=== PATIENT | male | born 1930 | race Caucasian/White ===

== ENCOUNTER 2020-01-28 19:40 | Emergency (ER) | payer MEDICARE, OTHER ==
[~2020-01-28] VITALS: Ht 162 cm; Wt 79.0 kg
--- NOTE | 2020-01-28 20:01 | ED General ---
General Chief Complaint: General Problems/Pain Stated Complaint: OD OF AMP DEXTROSE Source of Information: Patient Exam Limitations: No Limitations History of Present Illness Date Seen by Provider: Jan 28, 2020 Time Seen by Provider: 19:50 Initial Comments Patient presents with concern of possibly taking too much of his regular prescr iption medication. His daughter normally lays out 1 week of his medication and the pill dispensing container and came to fill the container today which should've had 1 day left but the container was empty. Patient does not recall taking an extra day or taking any extra pills. Swollen actuality it could've been a day over the past 6 days that the pills were missing, however they called poison control and there was concern of him taking an extra glipizide today, although that cannot be confirmed. Patient is feeling fine, he ate dinner tonight and is without complaint. States that his sugars up and running "normal" and that he never goes low. Allergies and Home Medications Allergies Coded Allergies: No Known Drug Allergies (Unverified , 01/28/20) Patient Home Medication List Home Medication List Reviewed: Yes Review of Systems Review of Systems Constitutional: see HPI; No dizziness, No fever, No malaise, No weakness Respiratory: No cough, No short of breath Cardiovascular: No chest pain, No edema, No palpitations Gastrointestinal: No abdominal pain, No loss of appetite, No nausea, No vomiting Psychiatric/Neurological: Denies Headache, Denies Numbness, Denies Paresthesia Past Igaipqf-Ceazlx-Pdxkrp Hx Past Med/Social Hx: Reviewed Nursing Past Med/Soc Hx Patient Social History Alcohol Use: Denies Use Recreational Drug Use: No Smoking Status: Never a Smoker 2nd Hand Smoke Exposure: No Recent Foreign Travel: No Contact w/Someone Who Travel: No Recent Hopitalizations: No Past Medical History Surgeries: No Respiratory: No Cardiac: Yes High Cholesterol, Hypertension Neurological: No Genitourinary: No Gastrointestinal: No Musculoskeletal: No Endocrine: Yes Diabetes, Non-Insulin dep HEENT: No Cancer: No Psychosocial: No Integumentary: No Blood Disorders: No Physical Exam Vital Signs Vital Signs - First Documented 01/28/20 19:43 Temp 36.7 Pulse 75 Resp 16 B/P (MAP) 139/86 (103) Pulse Ox 98 O2 Delivery Room Air Capillary Refill : Height, Weight, BMI Height: '" Weight: lbs. oz. kg; BMI Method: General Appearance: No Apparent Distress, WD/WN HEENT: PERRL/EOMI, Normal ENT Inspection Respiratory: Lungs Clear, Normal Breath Sounds Cardiovascular: Regular Rate, Rhythm, No Edema Gastrointestinal: Non Tender, Soft Neurologic/Psychiatric: Alert, Oriented x3 Progress/Results/Core Measures Suspected Sepsis SIRS Temperature: Pulse: Respiratory Rate: Laboratory Tests 01/28/20 19:47: White Blood Count 10.9 Blood Pressure / Mean: Laboratory Tests 01/28/20 19:47: Creatinine 1.55H, Platelet Count 179, Total Bilirubin 0.4 Results/Orders Lab Results Laboratory Tests Test 01/28/20 19:47 01/28/20 19:48 Range/Units White Blood Count 10.9 4.3-11.0 10^3/uL Red Blood Count 4.35 4.35-5.85 10^6/uL Hemoglobin 12.5 L 13.3-17.7 G/DL Hematocrit 39 L 40-54 % Mean Corpuscular Volume 89 80-99 FL Mean Corpuscular Hemoglobin 29 25-34 PG Mean Corpuscular Hemoglobin Concent 32 32-36 G/DL Red Cell Distribution Width 14.9 H 10.0-14.5 % Platelet Count 179 130-400 10^3/uL Mean Platelet Volume 11.5 H 7.4-10.4 FL Neutrophils (%) (Auto) 69 42-75 % Lymphocytes (%) (Auto) 16 12-44 % Monocytes (%) (Auto) 10 0-12 % Eosinophils (%) (Auto) 4 0-10 % Basophils (%) (Auto) 1 0-10 % Neutrophils # (Auto) 7.5 1.8-7.8 X 10^3 Lymphocytes # (Auto) 1.7 1.0-4.0 X 10^3 Monocytes # (Auto) 1.1 H 0.0-1.0 X 10^3 Eosinophils # (Auto) 0.5 H 0.0-0.3 10^3/uL Basophils # (Auto) 0.1 0.0-0.1 10^3/uL Sodium Level 139 135-145 MMOL/L Potassium Level 4.4 3.6-5.0 MMOL/L Chloride Level 101 98-107 MMOL/L Carbon Dioxide Level 24 21-32 MMOL/L Anion Gap 14 5-14 MMOL/L Blood Urea Nitrogen 22 H 7-18 MG/DL Creatinine 1.55 H 0.60-1.30 MG/DL Estimat Glomerular Filtration Rate 43 BUN/Creatinine Ratio 14 Glucose Level 129 H 70-105 MG/DL Calcium Level 8.9 8.5-10.1 MG/DL Corrected Calcium 8.9 8.5-10.1 MG/DL Total Bilirubin 0.4 0.1-1.0 MG/DL Aspartate Amino Transf (AST/SGOT) 28 5-34 U/L Alanine Aminotransferase (ALT/SGPT) 18 0-55 U/L Alkaline Phosphatase 54 40-136 U/L Total Protein 6.8 6.4-8.2 GM/DL Albumin 4.0 3.2-4.5 GM/DL Glucometer 120 H 70-110 MG/DL My Orders Orders - DAYNE VALENTINE DO Comprehensive Metabolic Panel (01/28/20 19:57) Cbc With Automated Diff (01/28/20 19:57) Accucheck Stat ONCE (01/28/20 20:03) Vital Signs/I&O 01/28/20 01/28/20 19:43 20:23 Temp 36.7 36.7 Pulse 75 75 Resp 16 16 B/P (MAP) 139/86 (103) 139/86 (103) Pulse Ox 98 98 O2 Delivery Room Air Room Air Capillary Refill : Progress Note : Progress Note Patient unaware if he actually took extra dose of his medication, his daughter just noted that he was short one day of medication today prior to refilling his medication container for the week. However patient does regularly take his medication at 7 a.m. daily and today was no different. His had a normal day, eating 3 meals without any hypoglycemic episodes. The peak plasma concentration of glipizide would occur on average one to 3 hours after taking the medication which would've been by 10 a.m. today. Also half- life of glipizide is 2-4 hours. If patient had taken a dangerous dose of glipizide he would've had hypoglycemia by noon or shortly afterward. However patient has been without hypoglycemic symptoms all day with normal activity, behavior tenderness without complaint. This time do not think it necessary to watch him for several hours his poison control has advised. Suspect they do not have direct patient information (only suspicion) as I've gained here in the ER. Patient is safe to go home, he has ank 2 cups of apple juice and advised that ate some protein or high-quality fat prior to bedtime tonight. Departure Impression Primary Impression: Accidental medication overdose Qualified Codes: T50.901A - Poisoning by unspecified drugs, medicaments and biological substances, accidental (unintentional), initial encounter Disposition: HOME, SELF-CARE Condition: Stable Departure-Patient Inst. Decision time for Depature: 20:11 Referrals: NO,LOCAL PHYSICIAN (PCP/Family) Primary Care Physician Patient Instructions: Accidental Overdose (DC) Add. Discharge Instructions: Eat a serving of protein tonight, such as a peanut butter sandwich. Watch for symptoms of low blood sugar and keep some juice or cola nearby if you are feeling low. Follow up with your PCP as needed. Be careful not to take your daily pills more than once. All discharge instructions reviewed with patient and/or family. Voiced understanding. DAYNE VALENTINE DO Jan 28, 2020 20:01
[2020-01-28 20:04] LABS: WHITE BLOOD COUNT 10.9 10^3/uL (4.3-11.0)
[2020-01-28 20:05] LABS: BASOPHILS # (AUTO) 0.1 10^3/uL (0.0-0.1); BASOPHILS % (AUTO) 1 % (0-10); EOSINOPHILS # (AUTO) 0.5 10^3/uL (0.0-0.3); EOSINOPHILS % (AUTO) 4 % (0-10); HEMATOCRIT 39 % (40-54); HEMOGLOBIN 12.5 G/DL (13.3-17.7); LYMPHOCYTES # (AUTO) 1.7 X 10^3 (1.0-4.0); LYMPHOCYTES % (AUTO) 16 % (12-44); MEAN CORPUSCULAR HEMOGLOBIN 29 PG (25-34); MEAN CORPUSCULAR HGB CONC 32 G/DL (32-36); MEAN CORPUSCULAR VOLUME 89 FL (80-99); MEAN PLATELET VOLUME 11.5 FL (7.4-10.4); MONOCYTES # (AUTO) 1.1 X 10^3 (0.0-1.0); MONOCYTES % (AUTO) 10 % (0-12); NEUTROPHILS # (AUTO) 7.5 X 10^3 (1.8-7.8); NEUTROPHILS % (AUTO) 69 % (42-75); PLATELET COUNT 179 10^3/uL (130-400); RED CELL DISTRIBUTION WIDTH 14.9 % (10.0-14.5)
[2020-01-28 20:21] LABS: BILIRUBIN,TOTAL 0.4 MG/DL (0.1-1.0); CALCIUM 8.9 MG/DL (8.5-10.1); CREATININE SERUM 1.55 MG/DL (0.60-1.30); TOTAL PROTEIN 6.8 GM/DL (6.4-8.2)
[2020-01-28 20:22] LABS: POTASSIUM 4.4 MMOL/L (3.6-5.0)
[2020-01-28 20:23] VITALS: BP 139/86
--- OUTSIDE RECORDS SUMMARY | 2020-01-28 22:16 | XMS REPORT | Continuity of Care Document ---
Author Organization Unknown Address Unknown Phone Unavailable Allergies Active Description Code Type Severity Reaction Onset Reported/Identified Relationship to Patient Clinical Status Yes No Known Drug Allergies [id number] Drug Allergy Unknown N/A 01/28/2020 Medications There is no data. Problems There is no data. Procedures There is no data. Results Test Result Range Complete blood count (CBC) with automate d white blood cell (WBC) differential - 01/28/20 19:47 Blood leukocytes automated count (number/volume) 10.9 10*3/uL 4.3-11.0 Blood erythrocytes automated count (number/volume) 4.35 10*6/uL 4.35-5.85 Venous blood hemoglobin measurement (mass/volume) 12.5 g/dL 13.3-17.7 Blood hematocrit (volume fraction) 39 % 40-54 Automated erythrocyte mean corpuscular volume 89 [ foz_us] 80-99 Automated erythrocyte mean corpuscular h emoglobin (mass per erythrocyte) 29 pg 25-34 Automated erythrocyte mean corpuscular h emoglobin concentration measurement (mass/volume) 32 g/dL 32-36 Automated erythrocyte distribution width ratio 14. 9 % 10.0- 14.5 Automated blood platelet count (count/volume) 179 10*3/uL 130-400 Automated blood platelet mean volume measurement 11.5 [foz_us] 7.4-10.4 Automated blood neutrophils/100 leukocytes 69 % 42-75 Automated blood lymphocytes/100 leukocytes 16 % 12-44 Blood monocytes/100 leukocytes 10 % 0-12 Automated blood eosinophils/100 leukocytes 4 % 0-10 Automated blood basophils/100 leukocytes 1 % 0-10 Blood neutrophils automated count (number/volume) 7.5 10*3 1.8-7.8 Blood lymphocytes automated count (number/volume) 1.7 10*3 1.0-4.0 Blood monocytes automated count (number/volume) 1. 1 10*3 0.0-1.0 Automated eosinophil count 0.5 10*3/uL 0 .0-0.3 Automated blood basophil count (count/volume) 0.1 10*3/uL 0.0-0.1 Comprehensive metabolic panel - 01/28/20 19:47 Serum or plasma sodium measurement (moles/volume) 139 mmol/L 135-145 Serum or plasma potassium measurement (moles/volume) 4.4 mmol/L 3.6-5.0 Serum or plasma chloride measurement (moles/volume) 101 mmol/L 98-107 Carbon dioxide 24 mmol/L 21-32 Serum or plasma anion gap determination (moles/volume) 14 mmol/L 5-14 Serum or plasma urea nitrogen measurement (mass/volume ) 22 mg/dL 7-18 Serum or plasma creatinine measurement (mass/volume) 1.55 mg/dL 0.60-1.30 Serum or plasma urea nitrogen/creatinine mass ratio 14 NRG Serum or plasma creatinine measurement w ith calculation of estimated glomerular filtration rate 43 NRG Serum or plasma glucose measurement (mass/volume) 129 mg/dL 70-105 Serum or plasma calcium measurement (mass/volume) 8.9 mg/dL 8.5-10.1 Serum or plasma total bilirubin measurement (mass/volu me) 0.4 mg/dL 0.1-1.0 Serum or plasma alkaline phosphatase petar surement (enzymatic activity/volume) 54 U/L 40-136 Serum or plasma aspartate aminotransfera se measurement (enzymatic activity/volume) 28 U/L 5-34 Serum or plasma alanine aminotransferase measurement (enzymatic activity/volume) 18 U/L 0-55 Serum or plasma protein measurement (mass/volume) 6.8 g/dL 6.4-8.2 Serum or plasma albumin measurement (mass/volume) 4.0 g/dL 3.2-4.5 CALCIUM CORRECTED 8.9 mg/dL 8.5-10.1 Capillary blood glucose measurement by g lucometer (mass/volume) - 01/28/20 19:48 Capillary blood glucose measurement by glucometer (mas s/volume) 120 mg/dL 70-110 Encounters ACCT No. Visit Date/Time Discharge Status Pt. Type Provider Facility Loc./Unit Complaint [id number] 01/28/2020 19:43:00 020 20:27:00 DIS Emergency ALLYVENDAYNE HORTON DO [facility] ER FS POSS OD OF AMP DEXTROSE [id number] 01/22/2020 15:30:00 01/22/2020 23:59: 59 CLS Outpatient Juan Manuel Rocha [facility]
== END 2020-01-28 20:27 | disposition home or self-care (01) ==
LOC: ER FS 19:43
DX: T50.901A Poisoning by unspecified drugs, medicaments and biological substances, accidental (unintentional), initial encounter (principal); E11.9 Type 2 diabetes mellitus without complications
CPT/HCPCS: 36415; 80053; 82962; 85025

== ENCOUNTER → 2020-03-30 | Outpatient (CLI) | payer MEDICARE, OTHER ==
[2020-03-30 09:40] LABS: HEMOGLOBIN 12.5 G/DL (13.3-17.7); WHITE BLOOD COUNT 8.6 10^3/uL (4.3-11.0)
[2020-03-30 09:41] LABS: MEAN PLATELET VOLUME 11.8 FL (7.4-10.4)
[2020-03-30 09:42] LABS: ALBUMIN 3.8 GM/DL (3.2-4.5); BILIRUBIN,DIRECT 0.2 MG/DL (0.0-0.3); BILIRUBIN,INDIRECT 0.3 MG/DL; BILIRUBIN,TOTAL 0.5 MG/DL (0.1-1.0); CALCIUM 9.3 MG/DL (8.5-10.1); CREATININE SERUM 1.45 MG/DL (0.60-1.30); POTASSIUM 4.1 MMOL/L (3.6-5.0); TOTAL PROTEIN 6.7 GM/DL (6.4-8.2)
== END ==
LOC: LAB FS 07:17
DX: E11.9 Type 2 diabetes mellitus without complications (principal); I25.10 Atherosclerotic heart disease of native coronary artery without angina pectoris; I48.91 Unspecified atrial fibrillation; I10 Essential (primary) hypertension
CPT/HCPCS: 36415; 80053; 80061; 80076; 83036; 85027

== ENCOUNTER → 2020-05-12 | Outpatient (CLI) | payer MEDICARE, OTHER ==
[2020-05-12 16:24] LABS: INR 2.1 (0.8-1.4)
== END ==
LOC: LAB FS 15:58
PROVIDERS: ATTEND Internal Medicine Critical Care Medicine
DX: Z79.01 Long term (current) use of anticoagulants (principal); I48.20 Chronic atrial fibrillation, unspecified
CPT/HCPCS: 36415; 85610

== ENCOUNTER → 2020-05-18 | Outpatient (CLI) | payer MEDICARE, OTHER ==
[2020-05-18 11:06] LABS: INR 1.9 (0.8-1.4); PROTHROMBIN TIME PATIENT 22.2 SEC (12.2-14.7)
== END ==
LOC: LAB FS 10:12
PROVIDERS: ATTEND Internal Medicine Critical Care Medicine
DX: Z51.81 Encounter for therapeutic drug level monitoring (principal); Z95.5 Presence of coronary angioplasty implant and graft; Z79.01 Long term (current) use of anticoagulants
CPT/HCPCS: 36415; 85610

== ENCOUNTER → 2020-05-22 | Outpatient (CLI) | payer MEDICARE, OTHER ==
[2020-05-22 17:16] LABS: INR 1.9 (0.8-1.4); PROTHROMBIN TIME PATIENT 22.4 SEC (12.2-14.7)
== END ==
LOC: LAB FS 16:07
PROVIDERS: ATTEND Internal Medicine Hematology & Oncology
DX: J44.9 Chronic obstructive pulmonary disease, unspecified (principal); Z95.5 Presence of coronary angioplasty implant and graft
CPT/HCPCS: 36415; 85610

== ENCOUNTER → 2020-05-29 | Outpatient (CLI) | payer MEDICARE, OTHER ==
[2020-05-29 17:46] LABS: INR 1.8 (0.8-1.4); PROTHROMBIN TIME PATIENT 21.4 SEC (12.2-14.7)
== END ==
LOC: LAB FS 17:04
DX: I48.20 Chronic atrial fibrillation, unspecified (principal); Z79.01 Long term (current) use of anticoagulants
CPT/HCPCS: 36415; 85610

== ENCOUNTER → 2020-06-05 | Outpatient (CLI) | payer MEDICARE, OTHER | LOC: LAB FS 15:25 | PROVIDERS: ATTEND Nurse Practitioner | DX: Z79.82 Long term (current) use of aspirin (principal); Z79.01 Long term (current) use of anticoagulants ==

== ENCOUNTER → 2020-06-07 | Outpatient (CLI) | payer MEDICARE, OTHER ==
[2020-06-07 15:47] LABS: INR 2.7 (0.8-1.4); PROTHROMBIN TIME PATIENT 28.5 SEC (12.2-14.7)
== END ==
LOC: LAB FS 14:46
PROVIDERS: ATTEND Internal Medicine Critical Care Medicine
DX: Z01.89 Encounter for other specified special examinations (principal); Z79.01 Long term (current) use of anticoagulants
CPT/HCPCS: 36415; 85610

== ENCOUNTER → 2020-06-12 | Outpatient (CLI) | payer MEDICARE, OTHER ==
[2020-06-12 15:42] LABS: PROTHROMBIN TIME PATIENT 27.6 SEC (12.2-14.7)
[2020-06-12 15:43] LABS: INR 2.6 (0.8-1.4)
== END ==
LOC: LAB FS 15:08
PROVIDERS: ATTEND Internal Medicine Hematology & Oncology
DX: I13.0 Hypertensive heart and chronic kidney disease with heart failure and stage 1 through stage 4 chronic kidney disease, or unspecified chronic kidney disease (principal); Z79.01 Long term (current) use of anticoagulants
CPT/HCPCS: 36415; 85610; 85730

== ENCOUNTER → 2020-06-19 | Outpatient (CLI) | payer MEDICARE, OTHER ==
[2020-06-19 10:23] LABS: INR 1.5 (0.8-1.4); PROTHROMBIN TIME PATIENT 17.9 SEC (12.2-14.7)
== END ==
LOC: LAB FS 09:38
PROVIDERS: ATTEND Family Medicine
DX: I48.20 Chronic atrial fibrillation, unspecified (principal); Z79.01 Long term (current) use of anticoagulants
CPT/HCPCS: 36415; 85610

== ENCOUNTER → 2020-07-05 | Outpatient (CLI) | payer MEDICARE, OTHER ==
[2020-07-05 10:22] LABS: INR 1.2 (0.8-1.4); PROTHROMBIN TIME PATIENT 15.3 SEC (12.2-14.7)
== END ==
LOC: LAB FS 09:47
PROVIDERS: ATTEND Internal Medicine Critical Care Medicine
DX: I48.20 Chronic atrial fibrillation, unspecified (principal); Z79.01 Long term (current) use of anticoagulants
CPT/HCPCS: 36415; 85610

== ENCOUNTER → 2020-07-12 | Outpatient (CLI) | payer MEDICARE, OTHER ==
[2020-07-12 11:07] LABS: INR 1.6 (0.8-1.4); PROTHROMBIN TIME PATIENT 18.9 SEC (12.2-14.7)
== END ==
LOC: LAB FS 10:38
PROVIDERS: ATTEND Family Medicine
DX: Z01.89 Encounter for other specified special examinations (principal); Z79.01 Long term (current) use of anticoagulants
CPT/HCPCS: 36415; 85610

== ENCOUNTER → 2020-07-19 | Outpatient (CLI) | payer MEDICARE, OTHER ==
[2020-07-19 11:13] LABS: INR 1.8 (0.8-1.4); PROTHROMBIN TIME PATIENT 21.1 SEC (12.2-14.7)
== END ==
LOC: LAB FS 10:41
PROVIDERS: ATTEND Family Medicine
DX: I48.20 Chronic atrial fibrillation, unspecified (principal)
CPT/HCPCS: 36415; 85610

== ENCOUNTER → 2020-08-02 | Outpatient (CLI) | payer MEDICARE, OTHER ==
[2020-08-02 13:36] LABS: INR 2.3 (0.8-1.4); PROTHROMBIN TIME PATIENT 25.8 SEC (12.2-14.7)
== END ==
LOC: IHC 12:51
PROVIDERS: ATTEND Family Medicine
DX: I48.20 Chronic atrial fibrillation, unspecified (principal); Z79.01 Long term (current) use of anticoagulants
CPT/HCPCS: 85610

== ENCOUNTER → 2020-08-09 | Outpatient (CLI) | payer MEDICARE, OTHER ==
[2020-08-09 12:32] LABS: INR 1.9 (0.8-1.4)
== END ==
LOC: LAB FS 11:47
PROVIDERS: ATTEND Family Medicine
DX: Z79.01 Long term (current) use of anticoagulants (principal)
CPT/HCPCS: 36415; 85610

== ENCOUNTER → 2020-09-21 | Outpatient (CLI) | payer MEDICARE, OTHER ==
[2020-09-21 15:24] LABS: INR 3.1 (0.8-1.4); PROTHROMBIN TIME PATIENT 31.8 SEC (12.2-14.7)
== END ==
LOC: IHC 15:00
PROVIDERS: ATTEND Family Medicine
DX: Z79.01 Long term (current) use of anticoagulants (principal)
CPT/HCPCS: 85610

== ENCOUNTER → 2020-09-25 | Outpatient (CLI) | payer MEDICARE, OTHER ==
[2020-09-25 14:45] LABS: PROTHROMBIN TIME PATIENT 39.1 SEC (12.2-14.7)
== END ==
LOC: LAB FS 14:07
PROVIDERS: ATTEND Family Medicine
DX: I48.0 Paroxysmal atrial fibrillation (principal)
CPT/HCPCS: 36415; 85610

== ENCOUNTER → 2020-10-12 | Outpatient (CLI) | payer MEDICARE, OTHER ==
[2020-10-12 10:49] LABS: INR 1.7 (0.8-1.4); PROTHROMBIN TIME PATIENT 20.5 SEC (12.2-14.7)
== END ==
LOC: IHC 09:57
PROVIDERS: ATTEND Family Medicine
DX: Z79.01 Long term (current) use of anticoagulants (principal)
CPT/HCPCS: 85610

== ENCOUNTER → 2020-10-18 | Outpatient (CLI) | payer MEDICARE, OTHER ==
[2020-10-18 10:12] LABS: INR 1.7 (0.8-1.4); PROTHROMBIN TIME PATIENT 19.9 SEC (12.2-14.7)
== END ==
LOC: IHC 09:04
PROVIDERS: ATTEND Family Medicine
DX: Z01.89 Encounter for other specified special examinations (principal); Z79.01 Long term (current) use of anticoagulants
CPT/HCPCS: 85610

== ENCOUNTER → 2020-10-25 | Outpatient (CLI) | payer MEDICARE, OTHER ==
[2020-10-25 10:14] LABS: PROTHROMBIN TIME PATIENT 20.6 SEC (12.2-14.7)
[2020-10-25 10:15] LABS: INR 1.7 (0.8-1.4)
== END ==
LOC: LAB FS 09:38
PROVIDERS: ATTEND Family Medicine
DX: Z79.01 Long term (current) use of anticoagulants (principal)
CPT/HCPCS: 85610

== ENCOUNTER → 2020-11-10 | Outpatient (CLI) | payer MEDICARE, OTHER ==
[2020-11-10 09:55] LABS: INR 3.6 (0.8-1.4); PROTHROMBIN TIME PATIENT 35.9 SEC (12.2-14.7)
== END ==
LOC: IHC 09:26
PROVIDERS: ATTEND Family Medicine
DX: Z79.01 Long term (current) use of anticoagulants (principal)
CPT/HCPCS: 85610

== ENCOUNTER → 2020-11-15 | Outpatient (CLI) | payer MEDICARE, OTHER ==
[2020-11-15 10:32] LABS: INR 2.4 (0.8-1.4); PROTHROMBIN TIME PATIENT 26.2 SEC (12.2-14.7)
== END ==
LOC: IHC 09:57
PROVIDERS: ATTEND Family Medicine
DX: Z79.01 Long term (current) use of anticoagulants (principal)
CPT/HCPCS: 85610

== ENCOUNTER → 2020-11-29 | Outpatient (CLI) | payer MEDICARE, OTHER ==
[2020-11-29 18:03] LABS: INR 1.7 (0.8-1.4); PROTHROMBIN TIME PATIENT 20.4 SEC (12.2-14.7)
== END ==
LOC: IHC 16:55
PROVIDERS: ATTEND Family Medicine
DX: Z51.81 Encounter for therapeutic drug level monitoring (principal); Z79.01 Long term (current) use of anticoagulants
CPT/HCPCS: 85610

== ENCOUNTER → 2020-12-06 | Outpatient (CLI) | payer MEDICARE, OTHER ==
[2020-12-06 13:10] LABS: INR 2.9 (0.8-1.4); PROTHROMBIN TIME PATIENT 30.2 SEC (12.2-14.7)
== END ==
LOC: IHC 12:25
PROVIDERS: ATTEND Family Medicine
DX: Z79.01 Long term (current) use of anticoagulants (principal)
CPT/HCPCS: 85610

== ENCOUNTER → 2020-12-30 | Outpatient (CLI) | payer MEDICARE, OTHER ==
[2020-12-30 16:25] LABS: INR 2.3 (0.8-1.4); PROTHROMBIN TIME PATIENT 25.1 SEC (12.2-14.7)
== END ==
LOC: IHC 15:59
PROVIDERS: ATTEND Family Medicine
DX: I48.0 Paroxysmal atrial fibrillation (principal); I25.2 Old myocardial infarction; Z79.01 Long term (current) use of anticoagulants
CPT/HCPCS: 85610

== ENCOUNTER → 2021-01-03 | Outpatient (CLI) | payer MEDICARE ==
[2021-01-03 11:17] LABS: INR 2.2 (0.8-1.4); PROTHROMBIN TIME PATIENT 24.8 SEC (12.2-14.7)
== END ==
LOC: IHC 10:49
PROVIDERS: ATTEND Family Medicine
DX: Z79.01 Long term (current) use of anticoagulants (principal)
CPT/HCPCS: 85610

== ENCOUNTER → 2021-01-10 | Outpatient (CLI) | payer MEDICARE ==
[2021-01-10 12:43] LABS: INR 2.2 (0.8-1.4); PROTHROMBIN TIME PATIENT 24.9 SEC (12.2-14.7)
== END ==
LOC: HH 12:18
PROVIDERS: ATTEND Family Medicine
DX: I48.0 Paroxysmal atrial fibrillation (principal)
CPT/HCPCS: 85610

== ENCOUNTER → 2021-01-17 | Outpatient (CLI) | payer MEDICARE ==
[2021-01-17 15:47] LABS: INR 2.6 (0.8-1.4); PROTHROMBIN TIME PATIENT 28.1 SEC (12.2-14.7)
== END ==
LOC: IHC 14:24
PROVIDERS: ATTEND Family Medicine
DX: Z79.01 Long term (current) use of anticoagulants (principal)
CPT/HCPCS: 85610

== ENCOUNTER → 2021-01-31 | Outpatient (CLI) | payer MEDICARE ==
[2021-01-31 13:07] LABS: INR 2.2 (0.8-1.4); PROTHROMBIN TIME PATIENT 24.8 SEC (12.2-14.7)
== END ==
LOC: IHC 12:17
PROVIDERS: ATTEND Family Medicine
DX: Z79.01 Long term (current) use of anticoagulants (principal)
CPT/HCPCS: 85610

== ENCOUNTER → 2021-02-08 | Outpatient (CLI) | payer MEDICARE ==
[2021-02-08 15:05] LABS: INR 3.1 (0.8-1.4); PROTHROMBIN TIME PATIENT 31.7 SEC (12.2-14.7)
== END ==
LOC: LAB FS 14:28
PROVIDERS: ATTEND Family Medicine
DX: Z79.01 Long term (current) use of anticoagulants (principal)
CPT/HCPCS: 36415; 85610

== ENCOUNTER → 2021-02-14 | Outpatient (CLI) | payer MEDICARE ==
[2021-02-14 13:39] LABS: INR 1.9 (0.8-1.4); PROTHROMBIN TIME PATIENT 22.1 SEC (12.2-14.7)
== END ==
LOC: IHC 13:02
PROVIDERS: ATTEND Family Medicine
DX: Z79.01 Long term (current) use of anticoagulants (principal)
CPT/HCPCS: 85610

== ENCOUNTER → 2021-02-21 | Outpatient (CLI) | payer MEDICARE ==
[2021-02-21 11:54] LABS: INR 1.9 (0.8-1.4)
== END ==
LOC: IHC 11:14
PROVIDERS: ATTEND Family Medicine
DX: Z51.81 Encounter for therapeutic drug level monitoring (principal); Z79.01 Long term (current) use of anticoagulants
CPT/HCPCS: 85610

== ENCOUNTER → 2021-03-07 | Outpatient (CLI) | payer MEDICARE ==
[2021-03-07 13:40] LABS: INR 2.3 (0.8-1.4); PROTHROMBIN TIME PATIENT 25.7 SEC (12.2-14.7)
== END ==
LOC: LAB FS 11:37
PROVIDERS: ATTEND Family Medicine
DX: Z51.81 Encounter for therapeutic drug level monitoring (principal); Z79.01 Long term (current) use of anticoagulants
CPT/HCPCS: 36415; 85610

== ENCOUNTER → 2021-03-13 | Outpatient (CLI) | payer MEDICARE ==
[2021-03-13 12:39] LABS: INR 2.1 (0.8-1.4); PROTHROMBIN TIME PATIENT 23.8 SEC (12.2-14.7)
== END ==
LOC: IHC 11:43
PROVIDERS: ATTEND Family Medicine
DX: Z79.01 Long term (current) use of anticoagulants (principal)
CPT/HCPCS: 85610

== ENCOUNTER → 2021-03-22 | Outpatient (CLI) | payer MEDICARE ==
[2021-03-22 10:03] LABS: INR 2.2 (0.8-1.4); PROTHROMBIN TIME PATIENT 24.5 SEC (12.2-14.7)
== END ==
LOC: IHC 09:10
PROVIDERS: ATTEND Family Medicine
DX: Z51.81 Encounter for therapeutic drug level monitoring (principal); Z79.01 Long term (current) use of anticoagulants
CPT/HCPCS: 85610

== ENCOUNTER → 2021-03-28 | Outpatient (CLI) | payer MEDICARE ==
[2021-03-28 12:50] LABS: INR 2.4 (0.8-1.4); PROTHROMBIN TIME PATIENT 26.1 SEC (12.2-14.7)
== END ==
LOC: IHC 11:43
PROVIDERS: ATTEND Family Medicine
DX: Z51.81 Encounter for therapeutic drug level monitoring (principal); Z79.01 Long term (current) use of anticoagulants; Z79.82 Long term (current) use of aspirin
CPT/HCPCS: 85610

== ENCOUNTER → 2021-04-02 | Outpatient (CLI) | payer MEDICARE ==
[2021-04-02 11:05] LABS: INR 2.7 (0.8-1.4); PROTHROMBIN TIME PATIENT 28.7 SEC (12.2-14.7)
== END ==
LOC: IHC 10:10
PROVIDERS: ATTEND Family Medicine
DX: Z51.81 Encounter for therapeutic drug level monitoring (principal); Z79.01 Long term (current) use of anticoagulants
CPT/HCPCS: 85610

== ENCOUNTER 2021-09-30 12:07 | Emergency (ER) | payer MEDICARE ==
[2021-09-30 12:34] LABS: BASOPHILS # (AUTO) 0.1 10^3/uL (0.0-0.1); BASOPHILS % (AUTO) 1 % (0-10); EOSINOPHILS # (AUTO) 0.1 10^3/uL (0.0-0.3); EOSINOPHILS % (AUTO) 2 % (0-10); HEMATOCRIT 30 % (40-54); HEMOGLOBIN 9.1 g/dL (13.3-17.7); LYMPHOCYTES # (AUTO) 1.4 10^3/uL (1.0-4.0); LYMPHOCYTES % (AUTO) 15 % (12-44); MEAN CORPUSCULAR HEMOGLOBIN 28 pg (25-34); MEAN CORPUSCULAR HGB CONC 31 g/dL (32-36); MEAN CORPUSCULAR VOLUME 90 fL (80-99); MONOCYTES # (AUTO) 1.1 10^3/uL (0.0-1.0); MONOCYTES % (AUTO) 12 % (0-12); NEUTROPHILS # (AUTO) 6.7 10^3/uL (1.8-7.8); NEUTROPHILS % (AUTO) 71 % (42-75); PLATELET COUNT 179 10^3/uL (130-400); WHITE BLOOD COUNT 9.5 10^3/uL (4.3-11.0)
--- NOTE | 2021-09-30 12:43 | Diagnostic Imaging Report ---
INDICATION: Shortness of air, cough. TECHNIQUE: Single view chest 12:32 PM. CORRELATION STUDY: None FINDINGS: Left-sided AICD. Heart size enlarged, mild vascular congestion. Small to moderate bilateral pleural effusions along with a atelectasis infiltrate and/or edema about both lung bases. Likely superimposed on chronic changes lung parenchyma. Severely advanced degenerative changes of the left shoulder. IMPRESSION: 1. Cardiac enlargement with mild vascular congestion. 2. Small to moderate the bilateral pleural effusion along with bibasilar areas of atelectasis, infiltrate and/or edema. Likely superimposed on chronic changes lung parenchyma. Dictated by: Dictated on workstation # [id number]
[2021-09-30 12:44] LABS: INR 1.7 (0.8-1.4); PROTHROMBIN TIME PATIENT 20.3 SEC (12.2-14.7)
[2021-09-30 12:56] LABS: ALANINE AMINOTRANSFERASE 7 U/L (0-55); ALBUMIN 3.2 GM/DL (3.2-4.5); ALKALINE PHOSPHATASE 122 U/L (40-136); BILIRUBIN,TOTAL 0.3 MG/DL (0.1-1.0); BUN/CREATININE RATIO 18; CALCIUM 9.2 MG/DL (8.5-10.1); CARBON DIOXIDE 27 MMOL/L (21-32); CHLORIDE 104 MMOL/L (98-107); CREATININE SERUM 1.53 MG/DL (0.60-1.30); GFR ESTIMATED 43; GLUCOSE 191 MG/DL (70-105); POTASSIUM 5.1 MMOL/L (3.6-5.0); SODIUM 139 MMOL/L (135-145); TOTAL PROTEIN 6.4 GM/DL (6.4-8.2)
--- NOTE | 2021-09-30 13:10 | ED Respiratory ---
General Chief Complaint: Cough/Cold/Flu Symptoms Stated Complaint: COUGH Source: patient Exam Limitations: no limitations History of Present Illness Date Seen by Provider: Sep 30, 2021 Time Seen by Provider: 11:00 Initial Comments Patient is an 89-year-old [facility] patient with history of hypertension, congestive heart failure who is currently anticoagulated on Coumadin who presents with productive cough with thick sputum for 2 days. He has had recent hospitalization for pneumonia. Last evening he was reported to have an unwitnessed fall at local [place] [facility] facility. The patient did not complain of injury and completed assessable round of neuro checks. He does not recall the cause of the fall. The patient is baseline supplemental oxygen. He denies shortness of breath, fevers chills, vomiting sweats. No chest pain chest tigh tness. Does report leg swelling with 3 pound weight gain overnight. Patient is not currently on a diuretic. He has no other injuries or complaints at this time. Timing/Duration: yesterday Severity: mild Prior Episodes/Possible Cause: other Modifying Factors: Improves With Other Associated Symptoms: other Allergies and Home Medications Allergies Coded Allergies: No Known Drug Allergies (Unverified , 01/28/20) Patient Home Medication List Home Medication List Reviewed: Yes Review of Systems Review of Systems Constitutional: see HPI EENTM: see HPI Respiratory: see HPI Cardiovascular: see HPI Gastrointestinal: see HPI Musculoskeletal: see HPI Skin: see HPI Psychiatric/Neurological: See HPI Hematologic/Lymphatic: See HPI Immunological/Allergic: see HPI All Other Systems Reviewed Negative Unless Noted: Yes Past Fptlvjn-Aajqpg-Rnhdyu Hx Patient Social History Tobacco Use?: No Smoking Status: Unknown if Ever Smoked Substance use?: No Alcohol Use?: No Pt feels they are or have been: No Immunizations Up To Date First/Initial COVID19 Vaccinat: yes Second COVID19 Vaccination Jim: yes Past Medical History Surgery/Hospitalization HX: CHF; Atheroscleroic heart disease; chornic pain syndrome; dystonia; hypothyroidism; pneumonia; atrial fibrillation; frequent falls; COPD; Dysphagia; HTN; Type 2 DM; Diatolic heart failure. Surgeries: No Respiratory: No Cardiac: Yes High Cholesterol, Hypertension Neurological: No Genitourinary: No Gastrointestinal: No Musculoskeletal: No Endocrine: Yes Diabetes, Non-Insulin dep HEENT: No Cancer: No Psychosocial: No Integumentary: No Blood Disorders: No Physical Exam Vital Signs - First Documented 09/30/21 12:15 Temp 35.9 Pulse 62 Resp 20 B/P (MAP) 89/51 (64) Pulse Ox 100 O2 Delivery Nasal Cannula O2 Flow Rate 3.00 Capillary Refill : Height: '" Weight: lbs. oz. kg; 30.00 BMI Method: General Appearance: WD/WN, no apparent distress Eyes: Bilateral Eye Normal Inspection, Bilateral Eye PERRL, Bilateral Eye EOMI HEENT: PERRL/EOMI, TMs normal, pharynx normal Neck: non-tender, full range of motion, supple Respiratory: lungs clear, decreased breath sounds Cardiovascular: normal peripheral pulses, regular rate, rhythm, other (Peripheral edema) Gastrointestinal: non tender, soft Neurologic/Psychiatric: avionics systems technician II-XII nml as tested, alert Focused Exam Lactate Level 09/30/21 12:30: Lactic Acid Level 1.70 Lactic Acid Level Laboratory Tests Test 09/30/21 12:30 Lactic Acid Level 1.70 MMOL/L (0.50-2.00) Progress/Results/Core Measures Suspected Sepsis SIRS Temperature: Pulse: Respiratory Rate: Laboratory Tests 09/30/21 12:30: White Blood Count 9.5 Blood Pressure / Mean: 09/30/21 12:30: Lactic Acid Level 1.70 Laboratory Tests 09/30/21 12:30: Creatinine 1.53H, INR Comment 1.7H, Platelet Count 179, Total Bilirubin 0.3 Results/Orders Lab Results Laboratory Tests Test 09/30/21 12:30 Range/Units White Blood Count 9.5 4.3-11.0 10^3/uL Red Blood Count 3.28 L 4.30-5.52 10^6/uL Hemoglobin 9.1 L 13.3-17.7 g/dL Hematocrit 30 L 40-54 % Mean Corpuscular Volume 90 80-99 fL Mean Corpuscular Hemoglobin 28 25-34 pg Mean Corpuscular Hemoglobin Concent 31 L 32-36 g/dL Red Cell Distribution Width 16.5 H 10.0-14.5 % Platelet Count 179 130-400 10^3/uL Mean Platelet Volume 12.0 9.0-12.2 fL Immature Granulocyte % (Auto) 1 % Neutrophils (%) (Auto) 71 42-75 % Lymphocytes (%) (Auto) 15 12-44 % Monocytes (%) (Auto) 12 0-12 % Eosinophils (%) (Auto) 2 0-10 % Basophils (%) (Auto) 1 0-10 % Neutrophils # (Auto) 6.7 1.8-7.8 10^3/uL Lymphocytes # (Auto) 1.4 1.0-4.0 10^3/uL Monocytes # (Auto) 1.1 H 0.0-1.0 10^3/uL Eosinophils # (Auto) 0.1 0.0-0.3 10^3/uL Basophils # (Auto) 0.1 0.0-0.1 10^3/uL Immature Granulocyte # (Auto) 0.1 0.0-0.1 10^3/uL Prothrombin Time 20.3 H 12.2-14.7 SEC INR Comment 1.7 H 0.8-1.4 Sodium Level 139 135-145 MMOL/L Potassium Level 5.1 H 3.6-5.0 MMOL/L Chloride Level 104 98-107 MMOL/L Carbon Dioxide Level 27 21-32 MMOL/L Anion Gap 8 5-14 MMOL/L Blood Urea Nitrogen 27 H 7-18 MG/DL Creatinine 1.53 H 0.60-1.30 MG/DL Estimat Glomerular Filtration Rate 43 BUN/Creatinine Ratio 18 Glucose Level 191 H 70-105 MG/DL Lactic Acid Level 1.70 0.50-2.00 MMOL/L Calcium Level 9.2 8.5-10.1 MG/DL Corrected Calcium 9.8 8.5-10.1 MG/DL Total Bilirubin 0.3 0.1-1.0 MG/DL Aspartate Amino Transf (AST/SGOT) 11 5-34 U/L Alanine Aminotransferase (ALT/SGPT) 7 0-55 U/L Alkaline Phosphatase 122 40-136 U/L Troponin I < 0.30 <0.30 NG/ML Pro-B-Type Natriuretic Peptide 88183.0 H <75.0 PG/ML Total Protein 6.4 6.4-8.2 GM/DL Albumin 3.2 3.2-4.5 GM/DL My Orders Orders - ISAAC KEYES DO Cbc With Automated Diff (09/30/21 12:21) Comprehensive Metabolic Panel (09/30/21 12:21) Chest 1 View Ap/Pa Only (09/30/21 12:21) Protime With Inr (09/30/21 12:21) Ekg Tracing (09/30/21 12:21) Troponin I Fs (09/30/21 12:21) Probnp Fs (09/30/21 12:21) Lactic Acid Analyzer (09/30/21 12:30) Furosemide Injection (Lasix Injection) (09/30/21 13:15) Doxycycline Hyclate Tablet (Vibramycin T (09/30/21 13:15) Furosemide Injection (Lasix Injection) (09/30/21 14:30) Medications Given in ED Current Medications Medications Dose Ordered Sig/Michelle Route Start Time Stop Time Status Last Admin Dose Admin Furosemide 40 mg ONCE ONCE IVP 09/30/21 13:15 09/30/21 13:16 DC 09/30/21 13:20 40 MG Furosemide 40 mg ONCE ONCE IVP 09/30/21 14:30 09/30/21 14:31 DC 09/30/21 14:27 40 MG Vital Signs/I&O 09/30/21 12:15 Temp 35.9 Pulse 62 Resp 20 B/P (MAP) 89/51 (64) Pulse Ox 100 O2 Delivery Nasal Cannula O2 Flow Rate 3.00 Capillary Refill : Departure Communication (PCP) Chest x-ray: Mild cardiomegaly with pulmonary vascular congestion, pleural effusions and possible pulmonary infiltrate Patient with CHF symptoms pulmonary vascular congestion/effusions on x-ray. No respiratory compromise. Productive cough with thick discolored sputum. Patient is afebrile normal white blood cell count negative lactic acid. ICV Lasix given with significant diuresis. Doxycycline given. Will discharge to [place] [facility] with instructions to follow-up with PCP in 1 to 2 days. Return precautions reviewed per Impression Primary Impression: CHF exacerbation Additional Impression: Pulmonary infiltrates on CXR Disposition: 01 HOME, SELF-CARE Condition: Stable Departure-Patient Inst. Referrals: SHAKILA MULLEN DO (PCP/Family) Primary Care Physician Patient Instructions: Heart Failure ED, Pneumonia in Adults Add. Discharge Instructions: Franklin was evaluated the emergency department for cough. Chest x-ray and labs are consistent with congestive heart failure and possible pneumonia. Please give newly prescribed medications as directed and follow-up with his [place] [facility] attending her PCP in 1 to 2 days for reevaluation without fail. Return to the ED if new or worsening symptoms. All discharge instructions reviewed with patient and/or family. Voiced understanding. Scripts Furosemide (Lasix) 40 Mg Tablet 40 MG PO BID, #6 TAB Prov: ISAAC KEYES DO 09/30/21 Doxycycline Hyclate (Doxycycline Hyclate) 100 Mg Tablet 100 MG PO BID, #20 TAB 0 Refills Prov: ISAAC KEYES DO 09/30/21 ISAAC KEYES DO Sep 30, 2021 13:10
[2021-09-30] MEDS ORDERED: FUROSEMIDE 40 MG/4 ML INJ (LASIX) IVP ONE ×2 (13:15→14:30)
[2021-09-30] MEDS ORDERED: DOXYCYCLINE 100 MG (VIBRAMYCIN) TABLET PO SCH (13:15)
[2021-09-30] MEDS ORDERED: FURO-124 PO (15:44)
[2021-09-30] MEDS ORDERED: DOXY100T2 PO (15:44)
[2021-09-30 15:55] VITALS: BP 107/62
== END 2021-09-30 15:57 | disposition home or self-care (01) ==
LOC: EDUNIT# 12:07 → ER FS 12:09
DX: I50.9 Heart failure, unspecified (principal); R91.8 Other nonspecific abnormal finding of lung field
CPT/HCPCS: 36415; 71045; 80053; 83605; 83880; 84484; 85025; 85610; 93005

== ENCOUNTER 2021-10-10 23:44 | Inpatient (IN) | payer MEDICARE ==
[~2021-10-10] VITALS: Ht 175 cm; Wt 71.4 kg
[~2021-10-10 23:44] MED LIST: DOXY100T2 PO; FURO-124 PO
[2021-10-11] VITALS (12 sets, daily range): BP systolic 91–146; BP diastolic 51–93
--- NOTE | 2021-10-11 00:05 | ED Chest Pain ---
General Stated Complaint: CHEST PAIN History of Present Illness Date Seen by Provider: Oct 11, 2021 Time Seen by Provider: 23:48 Initial Comments 89-year-old male with PMH of pacemaker/hypothyroidism/ CAD/ 4 strokes and 2 heart attacks/ on Warfarin, Is brought in by EMS with complaints of bilateral chest pain which began a couple hours ago. Patient rates his chest pain is 3 out of 10 earlier with resolution in the ER and appears comfortable in the ER. Denies palpitation, nausea and vomiting, diaphoresis, abdominal pain, headache, dizziness, fever and chills, cough, shortness of breath. Allergies and Home Medications Allergies Coded Allergies: No Known Drug Allergies (Unverified , 01/28/20) Patient Home Medication List Home Medication List Reviewed: Yes Doxycycline Hyclate (Doxycycline Hyclate) 100 Mg Tablet, 100 MG PO BID Prescribed by: ISAAC KEYES on 09/30/211543 Furosemide (Lasix) 40 Mg Tablet, 40 MG PO BID Prescribed by: ISAAC KEYES on 09/30/211543 Review of Systems Review of Systems Constitutional: no symptoms reported EENTM: No Symptoms Reported Respiratory: No Symptoms Reported Cardiovascular: Chest Pain Gastrointestinal: No Symptoms Reported Genitourinary: No Symptoms Reported Musculoskeletal: no symptoms reported Skin: no symptoms reported Psychiatric/Neurological: No Symptoms Reported Endocrine: No Symptoms Reported Hematologic/Lymphatic: No Symptoms Reported Past Hprgexp-Euoflu-Xjdqjm Hx Immunizations Up To Date First/Initial COVID19 Vaccinat: yes Second COVID19 Vaccination Jim: yes Past Medical History Surgery/Hospitalization HX: CHF; Atheroscleroic heart disease; chornic pain syndrome; dystonia; hypothyroidism; pneumonia; atrial fibrillation; frequent falls; COPD; Dysphagia; HTN; Type 2 DM; Diatolic heart failure. Surgeries: No Respiratory: No Cardiac: Yes High Cholesterol, Hypertension Neurological: No Genitourinary: No Gastrointestinal: No Musculoskeletal: No Endocrine: Yes Diabetes, Non-Insulin dep HEENT: No Cancer: No Psychosocial: No Integumentary: No Blood Disorders: No Physical Exam Vital Signs Vital Signs - First Documented 10/11/21 01:12 O2 Flow Rate 2.00 Capillary Refill : Height, Weight, BMI Height: '" Weight: lbs. oz. kg; 30.00 BMI Method: General Appearance: No Apparent Distress HEENT: PERRL/EOMI Neck: Normal Inspection, Non Tender Respiratory: Chest Non Tender, Lungs Clear, Normal Breath Sounds, No Accessory Muscle Use, No Respiratory Distress Cardiovascular: Regular Rate, Rhythm, No JVD, Normal Peripheral Pulses, Other (pedal edema+ bilaterally) Gastrointestinal: Normal Bowel Sounds, Non Tender, Soft, Other (healed abdominal scar in midline) Neurologic/Psychiatric: Alert, Oriented x3, No Motor/Sensory Deficits Skin: Normal Color, Other (right lower leg has shallow ulcerations) Lymphatic: No Adenopathy Progress/Results/Core Measures Results/Orders Lab Results Laboratory Tests Test 10/10/21 23:59 10/11/21 01:05 Range/Units White Blood Count 8.4 4.3-11.0 10^3/uL Red Blood Count 3.78 L 4.30-5.52 10^6/uL Hemoglobin 10.2 L 13.3-17.7 g/dL Hematocrit 33 L 40-54 % Mean Corpuscular Volume 87 80-99 fL Mean Corpuscular Hemoglobin 27 25-34 pg Mean Corpuscular Hemoglobin Concent 31 L 32-36 g/dL Red Cell Distribution Width 16.1 H 10.0-14.5 % Platelet Count 207 130-400 10^3/uL Mean Platelet Volume 12.6 H 9.0-12.2 fL Immature Granulocyte % (Auto) 1 % Neutrophils (%) (Auto) 65 42-75 % Lymphocytes (%) (Auto) 19 12-44 % Monocytes (%) (Auto) 11 0-12 % Eosinophils (%) (Auto) 4 0-10 % Basophils (%) (Auto) 0 0-10 % Neutrophils # (Auto) 5.5 1.8-7.8 10^3/uL Lymphocytes # (Auto) 1.6 1.0-4.0 10^3/uL Monocytes # (Auto) 0.9 0.0-1.0 10^3/uL Eosinophils # (Auto) 0.3 0.0-0.3 10^3/uL Basophils # (Auto) 0.0 0.0-0.1 10^3/uL Immature Granulocyte # (Auto) 0.1 0.0-0.1 10^3/uL Prothrombin Time 15.8 H 12.2-14.7 SEC INR Comment 1.2 0.8-1.4 Activated Partial Thromboplast Time 35 24-35 SEC D-Dimer 1.70 H 0.00-0.49 UG/ML Sodium Level 142 135-145 MMOL/L Potassium Level 4.0 3.6-5.0 MMOL/L Chloride Level 103 98-107 MMOL/L Carbon Dioxide Level 28 21-32 MMOL/L Anion Gap 11 5-14 MMOL/L Blood Urea Nitrogen 24 H 7-18 MG/DL Creatinine 1.51 H 0.60-1.30 MG/DL Estimat Glomerular Filtration Rate 44 BUN/Creatinine Ratio 16 Glucose Level 157 H 70-105 MG/DL Calcium Level 9.6 8.5-10.1 MG/DL Corrected Calcium 9.9 8.5-10.1 MG/DL Magnesium Level 1.8 1.6-2.4 MG/DL Total Bilirubin 0.5 0.1-1.0 MG/DL Aspartate Amino Transf (AST/SGOT) 15 5-34 U/L Alanine Aminotransferase (ALT/SGPT) 10 0-55 U/L Alkaline Phosphatase 133 40-136 U/L Troponin I < 0.30 <0.30 NG/ML Pro-B-Type Natriuretic Peptide 44153.0 H <75.0 PG/ML Total Protein 7.2 6.4-8.2 GM/DL Albumin 3.6 3.2-4.5 GM/DL Urine Color YELLOW Urine Clarity CLEAR Urine pH 6.5 5-9 Urine Specific [place] 1.015 L 1.016-1.022 Urine Protein NEGATIVE NEGATIVE Urine Glucose (UA) NEGATIVE NEGATIVE Urine Ketones NEGATIVE NEGATIVE Urine Nitrite NEGATIVE NEGATIVE Urine Bilirubin NEGATIVE NEGATIVE Urine Urobilinogen 0.2 < = 1.0 MG/DL Urine Leukocyte Esterase NEGATIVE NEGATIVE Urine RBC (Auto) NEGATIVE NEGATIVE Urine RBC NONE /HPF Urine WBC 0-2 /HPF Urine Squamous Epithelial Cells RARE /HPF Urine Crystals NONE /LPF Urine Bacteria NEGATIVE /HPF Urine Casts PRESENT /LPF Urine Hyaline Casts 10-25 H /LPF Urine Mucus NEGATIVE /LPF Urine Culture Indicated NO My Orders Orders - YVETTE DURAN MD Cbc With Automated Diff (10/10/21 23:57) Magnesium (10/10/21 23:57) Chest 1 View Ap/Pa Only (10/10/21 23:57) Ekg Tracing (10/10/21 23:57) Comprehensive Metabolic Panel (10/10/21 23:57) Protime With Inr (10/10/21 23:57) Partial Thromboplastin Time (10/10/21 23:57) O2 (10/10/21 23:57) Monitor-Rhythm Ecg Trace Only (10/10/21 23:57) Ed Iv/Invasive Line Start (10/10/21 23:57) Fibrin Degradation Products (10/10/21 23:57) Troponin I Fs (10/10/21 23:57) Probnp Fs (10/10/21 23:57) Ua Culture If Indicated (10/10/21 23:58) Furosemide Injection (Lasix Injection) (10/11/21 00:48) Ct Angio Chest W (10/11/21 01:00) Iohexol Injection (Omnipaque 350 Mg/Ml 1 (10/11/21 01:15) Received Contrast (Hold Metformin- Contr (10/11/21 01:15) Sodium Chloride Flush (Catheter Flush Sy (10/11/21 01:15) Ns (Ivpb) (Sodium Chloride 0.9% Ivpb Bag (10/11/21 01:15) Ed Admission (Communication) (10/11/21 02:04) Medications Given in ED Current Medications Medications Dose Ordered Sig/Michelle Route Start Time Stop Time Status Last Admin Dose Admin Iohexol 125 ml ONCE ONCE IV 10/11/21 01:15 10/11/21 01:18 DC 10/11/21 01:48 125 ML Sodium Chloride 10 ml NEEDED PRN IV 10/11/21 01:15 10/11/21 01:48 10 ML Sodium Chloride 100 ml ONCE ONCE IV 10/11/21 01:15 10/11/21 01:18 DC 10/11/21 01:48 80 ML Vital Signs/I&O 10/11/21 10/11/21 10/11/21 10/11/21 00:03 00:03 01:12 01:48 Temp 36.9 Pulse 61 61 Resp 20 20 B/P (MAP) 130/64 (86) 126/79 122/66 Pulse Ox 96 96 97 O2 Delivery Room Air Room Air Nasal Cannula O2 Flow Rate 2.00 Progress Progress Note : Progress Note Pt is a FULL CODE: 1. CHEST PAIN: ACS RULE OUT: - CXR: atelectasis bilaterally, small pleural effusions. - EKG: - CBC/ CMP: unremarkable - Troponin: normal - UA - Will transfer to [facility] [facility]. Accepted by Dr. Barron, hospitalist. Will admit to ICU. Discussed with Dr. Patel, front elevator operator. Will order ECHO for the morning. - Pt's usual front elevator operator is Dr Dugan in [facility]. Pt wanted to go there, but [facility] refused stating they are unable to handle the acuity of the patient and Dr. Dugan will not be back until next month. 2. ACUTE CHF EXACERBATION: - BNP: 24,257 - Lasix ordered as 40mg iv, but will give in 20mg increments in the ER while monitoring BP 3. ELEVATED D-DIMER: - D-dimer is 1.70 - CTA: No PE, small bilateral pleural effusions - Will need Doppler u/s in the morning 4. ERIK: - s. creatinine is 1.51, and BUN is 24 Initial ECG Impression Date: Oct 10, 2021 Initial ECG Impression Time: 23:52 Initial ECG Rate: 58 Initial ECG Intervals: MA (variable) Initial ECG Comparisson: No Previous ECG Available Diagnostic Imaging Diagonstic Imaging: Xray, CT Plain Films/CT/US/NM/MRI: chest Departure Communication (Admissions) Time/Spoke to Admitting Phy: 00:55 Hospitlaist, See progress note Time/Spoke to Consulting Phy: 01:35 Cardiology Family Conversation Took time to transfer since pt 's family initially wanted to go to [facility] but they rejected admission Impression Primary Impression: Acute congestive heart failure Qualified Codes: I50.9 - Heart failure, unspecified Additional Impressions: Elevated d-dimer Acute kidney injury Subtherapeutic international normalized ratio (INR) Disposition: 30 STILL A PATIENT Condition: Stable Admissions Decision to Admit Reason: Admit from ER (General) Decision to Admit/Date: Oct 11, 2021 Time/Decision to Admit Time: 00:45 Transfer Transfer Reason: Exceeds level of care Transfer Time: 02:33 Transfer Facility: [facility] Method of Transfer: EMS Departure-Patient Inst. Referrals: SHAKILA MULLEN DO (PCP/Family) Primary Care Physician YVETTE DURAN MD Oct 11, 2021 00:05
[2021-10-11 00:21] LABS: BASOPHILS % (AUTO) 0 % (0-10); EOSINOPHILS # (AUTO) 0.3 10^3/uL (0.0-0.3); EOSINOPHILS % (AUTO) 4 % (0-10); HEMATOCRIT 33 % (40-54); HEMOGLOBIN 10.2 g/dL (13.3-17.7); LYMPHOCYTES # (AUTO) 1.6 10^3/uL (1.0-4.0); LYMPHOCYTES % (AUTO) 19 % (12-44); MEAN CORPUSCULAR HEMOGLOBIN 27 pg (25-34); MEAN CORPUSCULAR HGB CONC 31 g/dL (32-36); MEAN CORPUSCULAR VOLUME 87 fL (80-99); MEAN PLATELET VOLUME 12.6 fL (9.0-12.2); MONOCYTES # (AUTO) 0.9 10^3/uL (0.0-1.0); MONOCYTES % (AUTO) 11 % (0-12); NEUTROPHILS # (AUTO) 5.5 10^3/uL (1.8-7.8); NEUTROPHILS % (AUTO) 65 % (42-75); PLATELET COUNT 207 10^3/uL (130-400); WHITE BLOOD COUNT 8.4 10^3/uL (4.3-11.0)
[2021-10-11 00:34] LABS: INR 1.2 (0.8-1.4); PROTHROMBIN TIME PATIENT 15.8 SEC (12.2-14.7)
[2021-10-11 00:40] LABS: ALBUMIN 3.6 GM/DL (3.2-4.5); BILIRUBIN,TOTAL 0.5 MG/DL (0.1-1.0); CALCIUM 9.6 MG/DL (8.5-10.1); CREATININE SERUM 1.51 MG/DL (0.60-1.30); MAGNESIUM 1.8 MG/DL (1.6-2.4); TOTAL PROTEIN 7.2 GM/DL (6.4-8.2)
[2021-10-11] MEDS ORDERED: FUROSEMIDE 40 MG/4 ML INJ (LASIX) IVP STA (00:48)
[2021-10-11] MEDS ORDERED: NS 100 ML (IVPB) BAG IV ONE (01:15)
[2021-10-11] MEDS ORDERED: IOHEXOL 350 MG/ML 150 ML (OMNIPAQUE 350) VIAL IV ONE (01:15)
[2021-10-11] MEDS ORDERED: HOLD METFORMIN - RECEIVED CONTRAST 20 ML VIAL IV SCH (01:15)
[2021-10-11] MEDS ORDERED: CATHETER FLUSH 10 ML SYR IV PRN (01:15)
[2021-10-11 01:22] LABS: BILIRUBIN,URINE NEGATIVE (NEGATIVE); CLARITY,URINE CLEAR; COLOR,URINE YELLOW; GLUCOSE, URINE (UA) NEGATIVE (NEGATIVE); KETONES,URINE NEGATIVE (NEGATIVE); LEUKOCYTE ESTERASE ,URINE NEGATIVE (NEGATIVE); NITRITE,URINE NEGATIVE (NEGATIVE); PH,URINE 6.5 (5-9); PROTEIN,URINE NEGATIVE (NEGATIVE)
[2021-10-11 01:27] LABS: BACTERIA,URINE NEGATIVE /HPF; SQUAMOUS EPITHELIAL CELL,UR RARE /HPF; WBC,URINE 0-2 /HPF
[2021-10-11] MEDS ORDERED: RT-ALBUTEROL/IPRATROPIUM 3 ML (DUONEB) VIAL INH PRN ×2 (05:00→07:00)
[2021-10-11 05:50] LABS: BASOPHILS % (AUTO) 1 % (0-10); EOSINOPHILS # (AUTO) 0.3 10^3/uL (0.0-0.3); EOSINOPHILS % (AUTO) 4 % (0-10); HEMATOCRIT 30 % (40-54); HEMOGLOBIN 9.3 g/dL (13.3-17.7); LYMPHOCYTES # (AUTO) 1.3 10^3/uL (1.0-4.0); LYMPHOCYTES % (AUTO) 17 % (12-44); MEAN CORPUSCULAR HEMOGLOBIN 27 pg (25-34); MEAN CORPUSCULAR HGB CONC 31 g/dL (32-36); MEAN CORPUSCULAR VOLUME 88 fL (80-99); MEAN PLATELET VOLUME 12.2 fL (9.0-12.2); MONOCYTES # (AUTO) 0.9 10^3/uL (0.0-1.0); MONOCYTES % (AUTO) 12 % (0-12); NEUTROPHILS # (AUTO) 5.1 10^3/uL (1.8-7.8); NEUTROPHILS % (AUTO) 66 % (42-75); PLATELET COUNT 178 10^3/uL (130-400); WHITE BLOOD COUNT 7.7 10^3/uL (4.3-11.0)
[2021-10-11 06:04] LABS: CALCIUM 8.9 MG/DL (8.5-10.1); CREATININE SERUM 1.45 MG/DL (0.60-1.30); POTASSIUM 3.7 MMOL/L (3.6-5.0)
[2021-10-11] MEDS: CATHETER FLUSH 10 ML SYR IVP SCH ×3 (06:04→19:53)
[2021-10-11 06:10] LABS: INR 1.4 (0.8-1.4); PROTHROMBIN TIME PATIENT 17.7 SEC (12.2-14.7)
--- NOTE | 2021-10-11 06:24 | Diagnostic Imaging Report ---
EXAMINATION: CT angiography of the chest. TECHNIQUE: Contrast enhanced thin section helical images were obtained through the chest with intravenous contrast timed for the optimal opacification of the arterial structures per CTA protocol. Post-processing, reconstructions and interpretation of angiographic images of the vessels was performed. 3D MIP reconstructions were performed and reviewed. All CT scans use one or more of the following dose optimizing techniques: automated exposure control, MA and/or KvP adjustment based on a patient size and exam type, or iterative reconstruction. HISTORY: Chest pain and elevated D-dimer COMPARISON: None available. FINDINGS: There is no central pulmonary embolism. Evaluation of segmental and smaller vessels is limited by motion artifact. There is no edema or pneumonia. There are small bilateral pleural effusions with overlying atelectasis. No pneumothorax. No suspicious nodules. There is no axillary or supraclavicular lymphadenopathy. There is no mediastinal lymphadenopathy. Heart size is normal. There are severe coronary artery calcifications. No pericardial effusion. Aorta is normal in caliber. Pacemaker is present. There is narrowing of the superior vena cava with extensive collateralization of veins. Limited views of the upper abdomen are unremarkable. There are no suspicious osseus lesions. IMPRESSION: 1. No central pulmonary embolism. Segmental and smaller vessels are obscured by motion artifact. 2. Small bilateral pleural effusions and overlying atelectasis. There is no significant disagreement with the preliminary report. Dictated by: Dictated on workstation # [id number]
[2021-10-11] MEDS: FUROSEMIDE 40 MG/4 ML INJ (LASIX) IV SCH (06:34)
[2021-10-11] MEDS ORDERED: ONDANSETRON 4 MG/2 ML (SDV) Z0FRAN IVP PRN (06:45)
[2021-10-11] MEDS ORDERED: CALCIUM CARBONATE 500 MG (TUMS) TAB.CHEW PO PRN (06:45)
[2021-10-11] MEDS ORDERED: HYDROcodone/APAP 5 MG/325 MG (LORTAB) TAB PO PRN (06:45)
[2021-10-11] MEDS ORDERED: morphine INJ 10 MG/ML 1ML (SYR OR VIAL) IVP PRN (06:45)
[2021-10-11] MEDS ORDERED: DOCUSATE SODIUM 100 MG (COLACE) CAP PO PRN (06:45)
[2021-10-11] MEDS ORDERED: LOPERAMIDE 2 MG (IMODIUM) TABLET PO PRN (06:45)
[2021-10-11] MEDS ORDERED: MELATONIN 3 MG TABLET PO PRN (06:45)
[2021-10-11] MEDS ORDERED: guaiFENesin/CODEINE (ROBITUSSIN AC) 10ML UDC PO PRN (06:45)
[2021-10-11] MEDS ORDERED: ALPRAZolam 0.25 MG (XANAX) TAB PO PRN (06:45)
[2021-10-11] MEDS ORDERED: ONDANSETRON 4 MG (ZOFRAN) ORAL DISSOLVE TAB PO PRN (06:45)
[2021-10-11] MEDS ORDERED: diphenhydrAMINE 25 MG TAB (BENADRYL) PO PRN (06:45)
--- NOTE | 2021-10-11 06:46 | Diagnostic Imaging Report ---
INDICATION: Chest pain Portable AP view of the chest is obtained with comparison made to study of 09/30/2021. Overall heart size and pulmonary vascularity are within normal limits. There is mild increased density in the right lung base with minimal residual atelectasis in left lung base. There is blunting of both costophrenic sulci. Advanced degenerative findings are seen in left shoulder girdle. IMPRESSION: Mild improvement in left basilar infiltrates seen on previous study. There is mild residual basilar atelectasis and/or pneumonitis, greater on the right with associated mild pleural fluid. Dictated by: Dictated on workstation # [id number]
--- NOTE | 2021-10-11 07:28 | History & Physical ---
History of Present Illness HPI/Chief Complaint Chief complaint: Shortness of breath History present illness: This is an 89-year-old white male who presented to the ER with shortness of breath. Patient was found to have volume overload with congestive heart failure. Lasix initiated with good results. Cardiology consulted. Patient is very hard of hearing and does not appear to have good recall. Patient wishes to be resuscitated in the event of a cardiac or re spiratory arrest. DPOA at the bedside is not the most supportive of that plan considering the poor outcome but until he is unable to make decisions for himself she will not intervene and he will remain a full code. Checked meds and labs. Restarted home meds. Oxygen maintained. He had previously been in the [facility] and just was discharged on 09/27/2021. Source: patient, family, RN/MD, old records Date Seen 10/11/21 Time Seen by a Provider: 10:30 Attending Physician Rebecca Barron John M MD Referring Physician Date of Admission Oct 11, 2021 at 03:15 Home Medications & Allergies Home Medications Reviewed patient Home Medication Reconciliation performed by pharmacy medication reconciliations biosolids management technician and/or nursing. Patients Allergies have been reviewed. Allergies Allergies Coded Allergies No Known Drug Allergies (Unverified01/28/20) Past Iovhmrf-Oymmru-Esaabu Hx Past Med/Social Hx: Reviewed Nursing Past Med/Soc Hx, Reviewed and Corrections made Patient Social History Marrital Status: single Employed/Student: retired Smoking Status: Unknown if Ever Smoked 2nd Hand Smoke Exposure: No Recent Hopitalizations: No Immunizations Up To Date Date of Influenza Vaccine: Jun 12, 2021 Past Medical History Respiratory: Pneumonia Cardiac: Chronic Edema/Swelling, High Cholesterol, Hypertension Neurological: Dementia Endocrine: Diabetes, Non-Insulin dep History of Blood Disorders: No Review of Systems ROS-Unable to Obtain: Very hard of hearing Constitutional: see HPI, malaise, weakness Respiratory: dyspnea on exertion Physical Exam Physical Exam Vital Signs Vital Signs - First Documented 10/11/21 10/11/21 01:12 04:53 O2 Flow Rate 2.00 FiO2 21 Capillary Refill : Height, Weight, BMI Height: '" Weight: lbs. oz. kg; 24.13 BMI Method: General Appearance: No Apparent Distress, Chronically ill, Thin HEENT: PERRL/EOMI Neck: Normal Inspection, Non Tender Respiratory: Chest Non Tender, Lungs Clear, Normal Breath Sounds, No Accessory Muscle Use, No Respiratory Distress, Decreased Breath Sounds Cardiovascular: Regular Rate, Rhythm, No JVD, Normal Peripheral Pulses, Other (pedal edema+ bilaterally) Gastrointestinal: Normal Bowel Sounds, Non Tender, Soft, Other (healed abdominal scar in midline) Neurologic/Psychiatric: Alert, Oriented x3, No Motor/Sensory Deficits, Depressed Affect Skin: Normal Color, Other (right lower leg has shallow ulcerations) Lymphatic: No Adenopathy Results Results/Procedures Labs Laboratory Tests 10/10/21 23:59 10/11/21 05:30 Patient resulted labs reviewed. Assessment/Plan Admission Diagnosis Assessment: Acute exacerbation of congestive heart failure both systolic and diastolic dysfunction Severe presbycusis Early dementia Advanced age Hypertension Chronic kidney disease Plan: Diuresis Oxygen Moved to fourth floor Appreciate cardiology Admission Status: Inpatient Order (span 2 midnights) Reason for Inpatient Admission: Congestive heart failure exacerbation an 89-year-old Diagnosis/Problems Diagnosis/Problems (1) Acute on chronic combined systolic and diastolic congestive heart failure (2) Cardiomyopathy (3) Cardiac pacemaker in situ REBECCA BARRON DO Oct 11, 2021 07:28
[2021-10-11] MEDS: polyethylene glycoL POWDER 17 GM (MIRALAX) PACK PO SCH ×2 (09:00→19:51)
[2021-10-11] MEDS: SENNA W/DOCUSATE (SENOKOT S) TABLET PO SCH ×2 (09:00→19:52)
[2021-10-11] MEDS: ISOSORBIDE MONONITRATE 60 MG (IMDUR) TAB PO SCH (09:59)
--- NOTE | 2021-10-11 11:20 | Consultation-Cardiology ---
HPI-Cardiology Cardiology Consultation: Date of Consultation 10/11/21 Date of Admission 10/11/21 Attending Physician Rebecca Barron DO Admitting Physician Nicolas Dhillon MD Consulting Physician CESAR RAMIREZ JR, MD HPI: Time Seen by a Provider: 17:13 Chief Complaint: Reason for consultation: Heart failure. I had the pleasure of seeing Franklin on the medical/surgical unit at [facility] in [place], [place] this afternoon. He is edentulous and somewhat confused and answers, it is somewhat difficult to obtain a history from the patient. He apparently called EMS last evening due to chest pain and was brought to [place] emergency room. He was found to have a negative troponin level but findings consistent with acute heart failure. He apparently follows with a neurology technologist at [facility] and the emergency room provider in [place] called [facility] but they stated they could not take a patient with his acuity. He was then transferred to our hospital for further evaluation. When I saw the patient he tells me that he has had shortness of breath for about 3 years. Yesterday he states this got acutely worse. He did not report any chest pain to me. On the other hand, he cannot remember how he got to the outside emergency room. He also does not remember the name of his regular neurology technologist. He did state that his breathing seems to have improved. He denies paroxysmal nocturnal dyspnea, orthopnea, palpitations, or syncope. He tells me he did have lower extremity edema but this has improved. Because of the heart failure, a cardiology consultation was requested. Certain portions of this document may have been dictated utilizing voice recognition technology. Inherent to this technology, typographical and grammatical errors may exist. As much as I am diligent to identify and correct these mistakes, some errors may remain in the document. Review of Systems-Cardiology Review of Systems Other comments Review of 10 organ systems is as per the history of present illness, otherwise negative. However, due to the patient's apparent altered mental status, his answers may not be reliable. GHX-Ucabkz-Ycotme Hx Patient Social History 2nd Hand Smoke Exposure: No Have you traveled recently?: No Pt feels they are or have been: No Immunizations Up To Date Date of Influenza Vaccine: Jun 12, 2021 Past Medical History PMH As described under Assessment. Family Medical History Family Medical History: He did not report any family history of premature coronary artery disease but again, due to some confusion, his answers may not be reliable. Allergies and Home Medications Allergies Coded Allergies: No Known Drug Allergies (Unverified , 01/28/20) Patient Home Medication List Home Medication List Reviewed: Yes Allopurinol (Allopurinol) 100 Mg Tablet, 100 MG PO DAILY, (Reported) Entered as Reported by: KD GARRETT on 10/11/211406 Last Action: Reviewed Aspirin (Aspirin EC) 81 Mg Tablet.dr, 81 MG PO DAILY, (Reported) Entered as Reported by: KD GARRETT on 10/11/211406 Last Action: Reviewed Carvedilol (Carvedilol) 3.125 Mg Tablet, 3.125 MG PO BID, (Reported) Entered as Reported by: KD GARRETT on 10/11/211406 Last Action: Reviewed Doxycycline Hyclate (Doxycycline Hyclate) 100 Mg Tablet, 100 MG PO BID, (Reported) Entered as Reported by: KD GARRETT on 10/11/211406 Last Action: Reviewed Fluticasone/Salmeterol (Fluticasone-Salmeterol 113-14) 1 Each Aer.pow.ba, 1 PUFF INH BID PRN for SHORTNESS OF BREATH, (Reported) Entered as Reported by: KD GARRETT on 10/11/211413 Last Action: Reviewed Isosorbide Mononitrate (Isosorbide Mononitrate ER) 120 Mg Tab.er.24h, 60 MG PO DAILY, (Reported) Entered as Reported by: KD GARRETT on 10/11/211406 Last Action: Reviewed Levothyroxine Sodium (Levothyroxine Sodium) 50 Mcg Tablet, 50 MCG PO DAILY, (Reported) Entered as Reported by: KD GARRETT on 10/11/211406 Last Action: Reviewed Loratadine (Loratadine) 10 Mg Tablet, 10 MG PO DAILY, (Reported) Entered as Reported by: KD GARRETT on 10/11/211406 Last Action: Reviewed Losartan Potassium (Losartan Potassium) 25 Mg Tablet, 25 MG PO DAILY, (Reported) Entered as Reported by: KD GARRETT on 10/11/211406 Last Action: Reviewed Magnesium Oxide (Magnesium) 400 Mg Tablet, 400 MG PO BID, (Reported) Entered as Reported by: KD GARRETT on 10/11/211406 Last Action: Reviewed Nitroglycerin (Nitroglycerin) 0.4 Mg Tab.subl, 0.4 MG SL UD PRN for CHEST PAIN, (Reported) Entered as Reported by: KD GARRETT on 10/11/211416 Last Action: Reviewed Omeprazole (Omeprazole) 20 Mg Capsule.dr, 20 MG PO DAILY, (Reported) Entered as Reported by: KD GARRETT on 10/11/211406 Last Action: Reviewed Warfarin Sodium (Warfarin Sodium) 4 Mg Tablet, 4 MG PO MO,TU,WE,TH,FR @HS, (Reported) Entered as Reported by: KD GARRETT on 10/11/211406 Last Action: Reviewed Warfarin Sodium (Warfarin Sodium) 3 Mg Tablet, 3 MG PO SUN,SAT @HS, (Reported) Entered as Reported by: KD GARRETT on 10/11/211406 Last Action: Reviewed Discontinued Medications Doxycycline Hyclate (Doxycycline Hyclate) 100 Mg Tablet, 100 MG PO BID Discontinued Reason: No Longer Taking Prescribed by: ISAAC KEYES on 09/30/211543 Last Action: Discontinued Furosemide (Lasix) 40 Mg Tablet, 40 MG PO BID Discontinued Reason: No Longer Taking Prescribed by: ISAAC KEYES on 09/30/211543 Last Action: Discontinued Exam Vital Signs Vital Signs Date Time Temp Pulse Resp B/P (MAP) Pulse Ox O2 Delivery O2 Flow Rate FiO2 10/11/21 16:15 Nasal Cannula 2.00 10/11/21 15:50 37.0 62 19 91/58 (69) 95 10/11/21 04:53 21 Physical Exam General: Alert. No acute distress. Well nourished and appears stated age. He is somewhat difficult to understand. Eye: Extraocular movements are intact. Conjunctivae are clear. There are no xa nthelasma. HENT: Normocephalic. Atraumatic. Carotid pulsations 2/2 without bruits. He is edentulous. Neck: Jugular venous pressure does not appear elevated. No thyromegaly appreciated. Respiratory: Lungs are clear to auscultation. Respirations are non-labored. Breath sounds are equal. Symmetrical chest wall expansion. Cardiovascular: Normal rate. Regular rhythm. No murmur. No gallop. Point of maximal impulse is not appear displaced. Good pulses equal in all extremities. No edema. Gastrointestinal: Soft. Normal bowel sounds. Skin: Skin turgor is normal. There is no pallor. Musculoskeletal: No kyphosis or scoliosis appreciated. Neurologic: Alert but oriented to person only. Cranial nerves 3-12 appear grossly intact. The patient has good motor tone strength in the upper and lower extremities bilaterally. Psychiatric: Cooperative. Appropriate mood & affect but does seem to have some baseline confusion. Labs Laboratory Tests Test 10/10/21 23:59 10/11/21 01:05 10/11/21 05:30 Range/Units White Blood Count 8.4 7.7 4.3-11.0 10^3/uL Red Blood Count 3.78 L 3.43 L 4.30-5.52 10^6/uL Hemoglobin 10.2 L 9.3 L 13.3-17.7 g/dL Hematocrit 33 L 30 L 40-54 % Mean Corpuscular Volume 87 88 80-99 fL Mean Corpuscular Hemoglobin 27 27 25-34 pg Mean Corpuscular Hemoglobin Concent 31 L 31 L 32-36 g/dL Red Cell Distribution Width 16.1 H 16.1 H 10.0-14.5 % Platelet Count 207 178 130-400 10^3/uL Mean Platelet Volume 12.6 H 12.2 9.0-12.2 fL Immature Granulocyte % (Auto) 1 1 % Neutrophils (%) (Auto) 65 66 42-75 % Lymphocytes (%) (Auto) 19 17 12-44 % Monocytes (%) (Auto) 11 12 0-12 % Eosinophils (%) (Auto) 4 4 0-10 % Basophils (%) (Auto) 0 1 0-10 % Neutrophils # (Auto) 5.5 5.1 1.8-7.8 10^3/uL Lymphocytes # (Auto) 1.6 1.3 1.0-4.0 10^3/uL Monocytes # (Auto) 0.9 0.9 0.0-1.0 10^3/uL Eosinophils # (Auto) 0.3 0.3 0.0-0.3 10^3/uL Basophils # (Auto) 0.0 0.0 0.0-0.1 10^3/uL Immature Granulocyte # (Auto) 0.1 0.0 0.0-0.1 10^3/uL Prothrombin Time 15.8 H 17.7 H 12.2-14.7 SEC INR Comment 1.2 1.4 0.8-1.4 Activated Partial Thromboplast Time 35 24-35 SEC D-Dimer 1.70 H 0.00-0.49 UG/ML Sodium Level 142 141 135-145 MMOL/L Potassium Level 4.0 3.7 3.6-5.0 MMOL/L Chloride Level 103 102 98-107 MMOL/L Carbon Dioxide Level 28 24 21-32 MMOL/L Anion Gap 11 15 H 5-14 MMOL/L Blood Urea Nitrogen 24 H 22 H 7-18 MG/DL Creatinine 1.51 H 1.45 H 0.60-1.30 MG/DL Estimat Glomerular Filtration Rate 44 46 BUN/Creatinine Ratio 16 15 Glucose Level 157 H 129 H 70-105 MG/DL Calcium Level 9.6 8.9 8.5-10.1 MG/DL Corrected Calcium 9.9 8.5-10.1 MG/DL Magnesium Level 1.8 1.6-2.4 MG/DL Total Bilirubin 0.5 0.1-1.0 MG/DL Aspartate Amino Transf (AST/SGOT) 15 5-34 U/L Alanine Aminotransferase (ALT/SGPT) 10 0-55 U/L Alkaline Phosphatase 133 40-136 U/L Troponin I < 0.30 <0.30 NG/ML Pro-B-Type Natriuretic Peptide 36935.0 H <75.0 PG/ML Total Protein 7.2 6.4-8.2 GM/DL Albumin 3.6 3.2-4.5 GM/DL Urine Color YELLOW Urine Clarity CLEAR Urine pH 6.5 5-9 Urine Specific [place] 1.015 L 1.016-1.022 Urine Protein NEGATIVE NEGATIVE Urine Glucose (UA) NEGATIVE NEGATIVE Urine Ketones NEGATIVE NEGATIVE Urine Nitrite NEGATIVE NEGATIVE Urine Bilirubin NEGATIVE NEGATIVE Urine Urobilinogen 0.2 < = 1.0 MG/DL Urine Leukocyte Esterase NEGATIVE NEGATIVE Urine RBC (Auto) NEGATIVE NEGATIVE Urine RBC NONE /HPF Urine WBC 0-2 /HPF Urine Squamous Epithelial Cells RARE /HPF Urine Crystals NONE /LPF Urine Bacteria NEGATIVE /HPF Urine Casts PRESENT /LPF Urine Hyaline Casts 10-25 H /LPF Urine Mucus NEGATIVE /LPF Urine Culture Indicated NO B-Type Natriuretic Peptide 1220.3 H <100.0 PG/ML Triglycerides Level 89 <150 MG/DL Cholesterol Level 138 < 200 MG/DL LDL Cholesterol Direct 75 1-129 MG/DL VLDL Cholesterol 18 5-40 MG/DL HDL Cholesterol 48 40-60 MG/DL Radiology ECHOCARDIOGRAM (10/11/2021): 1. Left ventricle: The cavity size is normal. There is mild concentric hypertrophy. Systolic function is moderately reduced. The estimated ejection fraction is 35-40%. There is moderate global hypokinesis. Features are consistent with a pseudonormal left ventricular filling pattern, with concomitant abnormal relaxation and increased filling pressure (grade 2 diastolic dysfunction). 2. Right ventricle: Device wire noted in the right ventricle. 3. Left atrium: The left atrium is moderately dilated with a volume index ranging from 39-51 mL/m. 4. Right atrium: The right atrium is moderately dilated with an area of 28 cm. Device wire noted in right atrium. 5. Aortic valve: There is mild aortic valve sclerosis. 6. Mitral valve: There is mild mitral regurgitation. 7. Pulmonary arteries: The estimated pulmonary artery systolic pressure is 31 mmHg assuming a right atrial pressure of 5 mmHg. ECG Impression ECG Comment Electrocardiogram from earlier today shows atrial fibrillation with a ventricular rate of approximately 70 bpm with intermittent demand ventricular pacing. Diagnosis/Problems Diagnosis/Problems (1) Acute on chronic combined systolic and diastolic congestive heart failure Assessment & Plan: He has moderate left ventricular systolic dysfunction noted on his echocardiogram from earlier today. Unknown whether or not this is new or a chronic finding. However, he does have a dual-chamber defibrillator would suggest that he may have pre-existing cardiomyopathy. I have requested records from his outside neurology technologist. He was treated with intravenous Lasix in the emergency room. He is now ordered for daily intravenous Lasix. He is back on carvedilol. His outpatient losartan is on hold due to low blood pressures. (2) Cardiomyopathy Assessment & Plan: As above, unclear whether or not this is a new or chronic finding in this patient but based upon the fact that he has a defibrillator, this is probably a chronic issue. He was also taking carvedilol and losartan at home which are common medications for cardiomyopathy. His carvedilol has been reordered but due to low blood pressures, losartan has not been reordered. (3) Coronary artery disease with unstable angina pectoris Assessment & Plan: He apparently reported chest pain at our outside emergency room but had an undetectable troponin level. He does not have any obvious ischemic changes on his electrocardiogram. It appears as though he was on aspirin and home but also warfarin presumably for atrial fibrillation. He is back on carvedilol and isosorbide mononitrate which he was taking at home. His cholesterol level is actually quite low on no statin medication. I have ordered records from his outside neurology technologist as noted above. (4) Persistent atrial fibrillation Assessment & Plan: He was on warfarin at home and his electrocardiograms from our facility appeared to be consistent with atrial fibrillation but there is a significant amount of artifact on the tracings. His INR level is actually low. I would suggest we hold to the warfarin until we can review his records from his regular neurology technologist. He may be a good candidate to change warfarin over to a DOAC. However, I would like to know his history before making this change. (5) Primary hypertension Assessment & Plan: He is presently back on carvedilol. We will resume losartan when able. (6) Cardiac defibrillator in situ Assessment & Plan: I have reviewed his chest x-ray which shows a dual-chamber defibrillator. He does appear to have intermittent ventricular pacing as noted above. CESAR RAMIREZ JR, MD Oct 11, 2021 11:20
[2021-10-11 11:35] LABS: TRIGLYCERIDES 89 MG/DL (<150); VLDL CHOLESTEROL 18 MG/DL (5-40)
[2021-10-11 11:40] LABS: CHOLESTEROL 138 MG/DL (< 200); HDL CHOLESTEROL 48 MG/DL (40-60)
--- NOTE | 2021-10-11 13:02 | ST Dysphagia Evaluation ---
Speech Evaluation-General Medical Diagnosis Chest Pain Onset Date: Oct 11, 2021 Therapy Diagnosis Therapy Diagnosis: Oropharyngeal Dysphagia Precautions Precautions: Fall, Aspiration Precautions/Isolations: Aspiration, Fall Prevention, Standard Precautions Referral Referring Physician: Dr. Rebecca Barron Reason for Referral: Evaluation/Treatment Medical History Reviewed History: Yes Social History Home: Shelter Speech PLF/Current-Dysphagia Prior Level of Function The patient's daughter provided extensive details regarding the patient's swallowing function and current diet level consistency. Per patient's daughter, the patient consumes "thickened" liquids but is unsure of the thickness. The daughter states, "I just follow the first set of instructions, maybe two tablespoons and two teaspoons and two cups of iced tea. I thicken the liquid and if he coughs or chokes I thicken it more." The daughter additionally states she does not thicken carbonated beverages because she was told she was not supposed to. The patient does "sometimes" drink thin liquids but not "often" and he seems "okay." Extensive education regarding thickening products was provided as well as the importance of thickening carbonated items, too. Subjective The patient was sleeping upon entrance but woke easily to a verbal greeting. The patient's daughter was present at bedside and provided the above past medical history. The patient was positioned upright in bed for safe swallowing position. The patient demonstrated rigorous coughing prior to administration of P.O. trials. CXR: 10/01/21: 1. No central pulmonary embolism. Segmental and smaller vessels are obscured by motion artifact. 2. Small bilateral pleural effusions and ov erlying atelectasis. Cognitive Status Patient Orientation: Confused Oral Motor Skills Dentition: Edentalous Current Food Consistancy: Regular, Thin Liquids Ability to Follow Directions: Poor Oral Expression Ability: Severe Impairment Voice Voice Phonatory-Based Quality: Breathy, Weak Voice Pitch: Normal Voice Loudness: Mildly Soft/Quiet Face Facial Symmetry: Symmetrical (At rest.) Oral-Facial Assessment Oral-Facial Dentition: Normal Labial Seal Description: Weak Smile: Normal Lingual Protrusion: Normal Volitional Dry Swallow: No Voluntary Cough: No Can Clear Throat Volitionally: No Productive Cough: No Productive Throat Clear: No Dysphagia Evaluation Consistencies Presented: Thin Liquid, Stacy Thick Liquid, Pureed Funct. Velo/Pharyngeal Symptom: Cough After Swallow, Wet Voice The patient demonstrated two to three pharyngeal swallows per small bolus. The patient was provided five teaspoons of thin liquid, two straw drinks of thin liquid, five teaspoons of nectar-thick liquid, four ounces of nectar-thick liqui d via straw, and four ounces of puree. The patient demonstrated a delayed throat clear with wet respirations following the straw drinks of thin liquid. Overt s/s of suspected aspiration were not demonstrated with nectar-thick liquid or puree. Following completion of the evaluation and during discussions with the patient's daughter (approximately seven to eight minutes following the final swallow), the patient demonstrated a rigorous cough. The cough was similar to the cough displayed upon entrance to the room. The patient may not be handling his own secretions (saliva-thin liquid). Dietary Recommendations: Pureed Liquid Recommendations: Stacy Consistancy Recommendations: - Dysphagia one (pureed) with nectar-thick liquid, as tolerated. - Fully upright and alert for P.O. intake. - 1:1 staff supervision, monitoring and feeding. - Small bites and sips, only. - Remain upright for a minimum of 30 minutes following P.O. intake. - Crush medication and place in puree for administration. - Monitor for s/s of suspected aspiration throughout P.O. intake. If demonstrated, contact speech pathology. - Frequent and excellent oral care to reduce the transfer of oral bacteria to the lungs should aspiration of secretions occur. - Due to the significantly delayed cough response following the completion of the meal, a referral to gastroenterology may be appropriate for additional investigation into the esophageal function. - Speech pathology will follow the patient for diet tolerance and safety two times per week. The recommendations were discussed extensively with the patient and the patient's daughter. The recommendations were provided to the assigned RN and the wire splicer following completion of the assessment. Swallowing Precautions: Oral Supervision Staff, Small Bites and Sips, Sitting 90 Degrees 30 Post Intake Dysphagia Evaluation Summary Please see above for specific details regarding the swallow study. The patient demonstrated oropharyngeal dysphagia characterized by reduced lingual coordination and poor airway protection throughout the swallow response. Barriers to Learning Fatigue, Confusion Speech Short Term Goals Short Term Goals Short Term Goals 1. The patient and staff will follow safe swallowing techniques to eliminate s/s of suspected aspiration throughout P.O. intake. Time Frame-STG: Three Ways. Speech Military Science Instructor Goals Military Science Instructor Goals 1. The patient will tolerate the least restrictive diet consistency without s/s of suspected aspiration. Time Frame: One week. Speech-Plan Treatment Plan Speech Therapy Treatment Plan: Continue Plan of Care Frequency: 2 times per week Estimated Hrs Per Day: .25 hour per day Rehab Potential: Fair Pt/Family Agrees to Plan: Yes Safety Risks/Education Teaching Recipient: Patient, Family Teaching Methods: Discussion Response to Teaching: Reinforcement Needed Education Topics Provided: An extensive discussion was completed with the patient's daugter, who verbalized comprehension. Topics of the education included appropriate solid and liquid consistencies, appropriate thickening procedures, swallowing safety techniques, and s/s of suspected aspiration. Time Speech Therapy Time In: 11:30 Speech Therapy Time Out: 12:10 Total Billed Time: 40 Billed Treatment Time 1, LUIS SMYTH ELIZABETH Oct 11, 2021 13:02
[2021-10-11] MEDS ORDERED: ISOS120T9 PO (14:07)
[2021-10-11] MEDS ORDERED: LOSA25TA41 PO (14:07)
[2021-10-11] MEDS ORDERED: ALLO100T PO (14:07)
[2021-10-11] MEDS ORDERED: DOXY100T2 PO (14:07)
[2021-10-11] MEDS ORDERED: OMEP20CA18 PO (14:07)
[2021-10-11] MEDS ORDERED: LORA10TA7 PO (14:07)
[2021-10-11] MEDS ORDERED: MAGN400T39 PO (14:07)
[2021-10-11] MEDS ORDERED: CARV3.122 PO (14:07)
[2021-10-11] MEDS ORDERED: WARF3TAB56 PO (14:07)
[2021-10-11] MEDS ORDERED: WARF4TAB3 PO (14:07)
[2021-10-11] MEDS ORDERED: ASPI-1238 PO (14:07)
[2021-10-11] MEDS ORDERED: LEVO50TA6 PO (14:07)
[2021-10-11] MEDS: RT-ALBUTEROL/IPRATROPIUM 3 ML (DUONEB) VIAL INH SCH ×2 (14:13→21:27)
[2021-10-11] MEDS ORDERED: FLUT1AER4 INH (14:14)
[2021-10-11] MEDS ORDERED: NITR0.4T39 SL (14:17)
--- NOTE | 2021-10-11 16:31 | Diagnostic Imaging Report ---
EXAMINATION: US Lower Extremity Arterial Duplex Bilateral. TECHNIQUE: Multiple real-time grayscale images were obtained over both lower extremities in various projections. Additional duplex Doppler and color Doppler images were also obtained. HISTORY: Congestive heart failure. COMPARISON: None available. FINDINGS: Right lower extremity: A normal triphasic waveform is seen within the common femoral and proximal superficial femoral arteries. Abnormal monophasic waveforms are seen within the mid and distal superficial femoral, popliteal, posterior tibial, and dorsalis pedis arteries. Scattered calcified plaque is present. Abnormal tardus parvus waveforms seen within the right dorsalis pedis artery. There are low velocities seen throughout the right lower extremity arteries. Left lower extremity: A normal triphasic or biphasic waveform is within the common femoral, superficial femoral, and popliteal arteries. Monophasic waveforms are seen within the posterior tibial and dorsalis pedis arteries. Mild calcified plaque is present. No abrupt decrease in velocity is seen. IMPRESSION: 1. 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 Dictated by: Dictated on workstation # [id number]
[2021-10-11] MEDS ORDERED: NITROGLYCERIN 0.4 MG SL TABS BTL 25'S SL PRN (20:45)
[2021-10-11] MEDS ORDERED: RT--FLUTICASONE/SALMETEROL 113-14 (AIRDUO RespiCLICK) IH PRN (20:45)
[2021-10-11] MEDS: warFARin 4 MG (COUMADIN) TAB PO SCH (22:50)
[2021-10-12] MEDS: RT-ALBUTEROL/IPRATROPIUM 3 ML (DUONEB) VIAL INH SCH ×4 (02:11→22:33)
[2021-10-12 03:39] VITALS: BP 151/68
[2021-10-12] MEDS: PANTOPRAZOLE 20 MG TABLET (PROTONIX) PO SCH (05:42)
[2021-10-12] MEDS: LEVOTHYROXINE 50 MCG (LEVOTHROID) TAB PO SCH (05:42)
[2021-10-12] MEDS: FUROSEMIDE 40 MG/4 ML INJ (LASIX) IV SCH (05:42)
[2021-10-12] MEDS: CATHETER FLUSH 10 ML SYR IVP SCH ×3 (05:43→21:19)
[2021-10-12 05:45] LABS: BASOPHILS % (AUTO) 0 % (0-10); EOSINOPHILS # (AUTO) 0.2 10^3/uL (0.0-0.3); EOSINOPHILS % (AUTO) 2 % (0-10); HEMATOCRIT 29 % (40-54); HEMOGLOBIN 9.1 g/dL (13.3-17.7); LYMPHOCYTES # (AUTO) 1.4 10^3/uL (1.0-4.0); LYMPHOCYTES % (AUTO) 12 % (12-44); MEAN CORPUSCULAR HEMOGLOBIN 27 pg (25-34); MEAN CORPUSCULAR HGB CONC 32 g/dL (32-36); MEAN CORPUSCULAR VOLUME 86 fL (80-99); MEAN PLATELET VOLUME 12.6 fL (9.0-12.2); MONOCYTES # (AUTO) 1.3 10^3/uL (0.0-1.0); MONOCYTES % (AUTO) 11 % (0-12); NEUTROPHILS # (AUTO) 9.1 10^3/uL (1.8-7.8); NEUTROPHILS % (AUTO) 75 % (42-75); PLATELET COUNT 187 10^3/uL (130-400); WHITE BLOOD COUNT 12.1 10^3/uL (4.3-11.0)
[2021-10-12 05:54] LABS: ALBUMIN 2.9 GM/DL (3.2-4.5); POTASSIUM 3.6 MMOL/L (3.6-5.0)
[2021-10-12 05:55] LABS: CALCIUM 9.2 MG/DL (8.5-10.1)
[2021-10-12 05:56] LABS: INR 1.5 (0.8-1.4); PROTHROMBIN TIME PATIENT 18.2 SEC (12.2-14.7)
[2021-10-12 05:57] LABS: TOTAL PROTEIN 5.9 GM/DL (6.4-8.2)
[2021-10-12 05:58] LABS: BILIRUBIN,TOTAL 0.6 MG/DL (0.1-1.0)
[2021-10-12 06:00] LABS: CREATININE SERUM 1.57 MG/DL (0.60-1.30)
--- NOTE | 2021-10-12 06:20 | Progress Note ---
Subjective Date Seen by a Provider: Oct 12, 2021 Objective Exam Last Set of Vital Signs Vital Signs Date Time Temp Pulse Resp B/P (MAP) Pulse Ox O2 Delivery O2 Flow Rate FiO2 10/12/21 03:39 37.1 81 18 151/68 (95) 91 Nasal Cannula 2.00 10/11/21 04:53 21 Capillary Refill : I&O Intake and Output 10/12/21 00:00 Intake Total 250 ml Output Total 3300 ml Balance -3050 ml Intake Oral 250 ml Output Urine Total 3300 ml Daily Weight Change No Results Lab Laboratory Tests 10/12/21 05:26: White Blood Count 12.1H, Red Blood Count 3.34L, Hemoglobin 9.1L, Hematocrit 29L, Mean Corpuscular Volume 86, Mean Corpuscular Hemoglobin 27, Mean Corpuscular Hemoglobin Concent 32, Red Cell Distribution Width 16.2H, Platelet Count 187, Mean Platelet Volume 12.6H, Immature Granulocyte % (Auto) 1, Neutrophils (%) (Auto) 75, Lymphocytes (%) (Auto) 12, Monocytes (%) (Auto) 11, Eosinophils (%) (Auto) 2, Basophils (%) (Auto) 0, Neutrophils # (Auto) 9.1H, Lymphocytes # (Auto) 1.4, Monocytes # (Auto) 1.3H, Eosinophils # (Auto) 0.2, Basophils # (Auto) 0.0, Immature Granulocyte # (Auto) 0.1, Prothrombin Time 18.2H, INR Comment 1.5H, Sodium Level 140, Potassium Level 3.6, Chloride Level 99, Carbon Dioxide Level 26, Anion Gap 15H, Blood Urea Nitrogen 20H, Creatinine 1.57H, Estimat Glomerular Filtration Rate 42, BUN/Creatinine Ratio 13, Glucose Level 137H, Calcium Level 9.2, Corrected Calcium 10.1, Total Bilirubin 0.6, Aspartate Amino Transf (AST/SGOT) 10, Alanine Aminotransferase (ALT/SGPT) 8, Alkaline Phosphatase 95, Total Protein 5.9L, Albumin 2.9L Diagnosis/Problems Diagnosis/Problems (1) Acute on chronic combined systolic and diastolic congestive heart failure (2) Cardiomyopathy (3) Cardiac pacemaker in situ CB BRADLEY DO Oct 12, 2021 06:20
[2021-10-12 08:44] VITALS: BP 119/64
[2021-10-12] MEDS ORDERED: ISOSORBIDE MONONITRATE 60 MG PO SCH (09:00)
[2021-10-12] MEDS: MAGNESIUM OXIDE (MAG-OX)400 MG TAB PO SCH ×2 (09:09→18:22)
[2021-10-12] MEDS: LORATADINE (CLARITIN) 10 MG TAB PO SCH (09:09)
[2021-10-12] MEDS: ASPIRIN E.C. 81 MG (ECOTRIN) TAB PO SCH (09:09)
[2021-10-12] MEDS: ALLOPURINOL 100 MG (ZYLOPRIM) TAB PO SCH (09:09)
[2021-10-12] MEDS: ISOSORBIDE MONONITRATE 60 MG (IMDUR) TAB PO SCH (09:18)
[2021-10-12] MEDS: polyethylene glycoL POWDER 17 GM (MIRALAX) PACK PO SCH ×2 (09:20→21:27)
[2021-10-12] MEDS: SENNA W/DOCUSATE (SENOKOT S) TABLET PO SCH ×2 (09:20→21:16)
--- NOTE | 2021-10-12 09:28 | Cardiology Progress Note ---
Progress Note-Cardiology Events since last exam Date Seen by Provider: Oct 12, 2021 Time Seen by Provider: 09:25 Events since last exam I am following him due to heart failure in the setting of known coronary artery disease although details unknown. He normally follows with a industrial servicer at [facility]. He remains on the medical/surgical unit. He is very difficult to understand. He denies chest discomfort. He states he is always short of breath and this is unchanged. He denies palpitations, syncope, or ankle edema. Certain portions of this document may have been dictated utilizing voice r ecognition technology. Inherent to this technology, typographical and grammatical errors may exist. As much as I am diligent to identify and correct these mistakes, some errors may remain in the document. Vitals Last set of Vitals Signs Vital Signs 10/11/21 10/12/21 10/12/21 04:53 12:08 15:43 Temp 36.8 Pulse 60 Resp 17 B/P (MAP) 106/57 (73) Pulse Ox 93 O2 Delivery Room Air O2 Flow Rate 2.00 FiO2 21 Labs Labs Laboratory Tests 10/12/21 05:26 Exam Vital Signs Vital Signs Date Time Temp Pulse Resp B/P (MAP) Pulse Ox O2 Delivery O2 Flow Rate FiO2 10/12/21 15:43 36.8 60 17 106/57 (73) 93 Room Air 10/12/21 12:08 2.00 10/11/21 04:53 21 Physical Exam General: Alert. No acute distress. Very difficult to understand his speech. Eye: No xanthelasma. HENT: Normocephalic. Edentulous. Neck: Jugular venous pressure does not appear elevated. Respiratory: Lungs are clear to auscultation. Respirations are non-labored. Breath sounds are equal. Symmetrical chest wall expansion. Cardiovascular: Normal rate. Regular rhythm. No murmur. No gallop. No edema. Gastrointestinal: Soft. Normal bowel sounds. Skin: Warm. Dry. Neurologic: Alert but oriented to person only. Cranial nerves 3-11 grossly intact. Psychiatric: Cooperative. Appropriate mood & affect but disoriented. Labs Laboratory Tests Test 10/12/21 05:26 Range/Units White Blood Count 12.1 H 4.3-11.0 10^3/uL Red Blood Count 3.34 L 4.30-5.52 10^6/uL Hemoglobin 9.1 L 13.3-17.7 g/dL Hematocrit 29 L 40-54 % Mean Corpuscular Volume 86 80-99 fL Mean Corpuscular Hemoglobin 27 25-34 pg Mean Corpuscular Hemoglobin Concent 32 32-36 g/dL Red Cell Distribution Width 16.2 H 10.0-14.5 % Platelet Count 187 130-400 10^3/uL Mean Platelet Volume 12.6 H 9.0-12.2 fL Immature Granulocyte % (Auto) 1 % Neutrophils (%) (Auto) 75 42-75 % Lymphocytes (%) (Auto) 12 12-44 % Monocytes (%) (Auto) 11 0-12 % Eosinophils (%) (Auto) 2 0-10 % Basophils (%) (Auto) 0 0-10 % Neutrophils # (Auto) 9.1 H 1.8-7.8 10^3/uL Lymphocytes # (Auto) 1.4 1.0-4.0 10^3/uL Monocytes # (Auto) 1.3 H 0.0-1.0 10^3/uL Eosinophils # (Auto) 0.2 0.0-0.3 10^3/uL Basophils # (Auto) 0.0 0.0-0.1 10^3/uL Immature Granulocyte # (Auto) 0.1 0.0-0.1 10^3/uL Prothrombin Time 18.2 H 12.2-14.7 SEC INR Comment 1.5 H 0.8-1.4 Sodium Level 140 135-145 MMOL/L Potassium Level 3.6 3.6-5.0 MMOL/L Chloride Level 99 98-107 MMOL/L Carbon Dioxide Level 26 21-32 MMOL/L Anion Gap 15 H 5-14 MMOL/L Blood Urea Nitrogen 20 H 7-18 MG/DL Creatinine 1.57 H 0.60-1.30 MG/DL Estimat Glomerular Filtration Rate 42 BUN/Creatinine Ratio 13 Glucose Level 137 H 70-105 MG/DL Calcium Level 9.2 8.5-10.1 MG/DL Corrected Calcium 10.1 8.5-10.1 MG/DL Total Bilirubin 0.6 0.1-1.0 MG/DL Aspartate Amino Transf (AST/SGOT) 10 5-34 U/L Alanine Aminotransferase (ALT/SGPT) 8 0-55 U/L Alkaline Phosphatase 95 40-136 U/L Total Protein 5.9 L 6.4-8.2 GM/DL Albumin 2.9 L 3.2-4.5 GM/DL Procalcitonin 0.09 <0.10 NG/ML Diagnosis/Problems Diagnosis/Problems (1) Acute on chronic combined systolic and diastolic congestive heart failure Assessment & Plan: He has moderate left ventricular systolic dysfunction noted on his echocardiogram from this admission. Unknown whether or not this is new or a chronic finding. However, he does have a dual-chamber defibrillator with would suggest that he may have pre-existing cardiomyopathy. I have requested records from his outside industrial servicer. He is ordered for daily intravenous Lasix. He is on carvedilol. His outpatient losartan is on hold due to low blood pressures. His chest x-ray from 10/12 shows persistent pulmonary edema. (2) Cardiomyopathy Assessment & Plan: As above, unclear whether or not this is a new or chronic finding in this patient but based upon the fact that he has a defibrillator, this is probably a chronic issue. He was also taking carvedilol and losartan at home which are common medications for cardiomyopathy. His carvedilol has been reordered but due to low blood pressures, losartan has still not been reordered. (3) Coronary artery disease with unstable angina pectoris Assessment & Plan: He apparently reported chest pain at our outside emergency room but had an undetectable troponin level. He does not have any obvious ischemic changes on his electrocardiogram. It appears as though he was on aspirin and home but also warfarin presumably for atrial fibrillation. He is back on carvedilol and isosorbide mononitrate which he was taking at home. His cholesterol level is actually quite low on no statin medication. I have ordered records from his outside industrial servicer as noted above. (4) Persistent atrial fibrillation Assessment & Plan: He was on warfarin at home and his electrocardiograms from our facility appeared to be consistent with atrial fibrillation but there is a significant amount of artifact on the tracings. His INR level is actually low. His warfarin has been reordered by the hospital provider. He may be a good candidate to change warfarin over to a DOAC. However, I would like to know his history before making this change. (5) Primary hypertension Assessment & Plan: He is presently back on carvedilol. We will resume losartan when able. (6) Acute kidney injury superimposed on chronic kidney disease Assessment & Plan: We need to watch this closely with the intravenous diuretic. (7) Cardiac defibrillator in situ Assessment & Plan: The device appears to be functioning normally on the electrocardiograms which have shown intermittent ventricular pacing. CESAR RAMIREZ JR, MD Oct 12, 2021 09:28
--- NOTE | 2021-10-12 09:42 | Diagnostic Imaging Report ---
INDICATION: CHF. COMPARISON: 10/11/2021 FINDINGS: Single frontal radiographic view of the chest was obtained and demonstrates persistent moderate cardiomegaly and mild pulmonary vascular congestion. Birdie B-lines are noted. There are also persistent small bibasilar effusions with associated patchy bibasilar airspace opacity, right greater than left. No pneumothorax is seen. Overall, aeration is largely stable. Left-sided AICD is present. Osseous structures show no acute adverse interval changes. IMPRESSION: 1. Stable moderate cardiomegaly with pulmonary vascular congestion and small bibasilar effusions. 2. Associated patchy bibasilar atelectasis and/or infiltrate. Dictated by: Dictated on workstation # [id number]
--- NOTE | 2021-10-12 11:45 | Physical Therapy Evaluation ---
PT Evaluation-General Medical Diagnosis Admission Date Oct 11, 2021 at 03:15 Medical Diagnosis: Chest Pain Onset Date: Oct 11, 2021 Therapy Diagnosis Therapy Diagnosis: debility/weakness Precautions Precautions/Isolations: Fall Prevention, Standard Precautions Referral Physician: Anderson Reason for Referral: Evaluation/Treatment Medical History Pertinent Medical History: Atrial Fib, CAD (pacemaker), CVA (x 4), DM, HTN, Hypothroidism, [place] (x 2) Current History ER secondary to CP and SOA Reviewed History: Yes Social History Current Living Status: Children Prior Prior Level of Function SCALE: Activities may be completed with or without assistive devices. 9-Rmosjszseo-sfohcrm completes the activity by him/herself with no assistance from a helper. 5-Set-up or Clean-up Assistance-helper sets up or cleans up; patient completes activity. [place] assists only prior to or following the activity. 4-Supervision or Touching Assistance-helper provides verbal cues and/or touching/steadying and/or contact guard assistance as patient completes activity. Assistance may be provided throughout the activity or intermittently. 3-Partial/Moderate Assistance-helper does LESS THAN HALF the effort. [place] lifts, holds or supports trunk or limbs, but provides less than half the effort. 2-Substantial/Maximal Assistance-helper does MORE THAN HALF the effort. [place] lifts or holds trunk or limbs and provides more than half the effort. 7-Uzieetybm-bjlgvu does ALL the effort. Patient does none of the effort to complete the activity. Or, the assistance of 2 or more helpers is required for the patient to complete the activity. If activity was not attempted, code reason: 7-Patient Refused. 9-Not Applicable-not attempted and the patient did not perform the activity before the current illness, exacerbation or injury. 10-Not Attempted due to Environmental Limitations-(lack of equipment, weather restraints, etc.). 88-Not Attempted due to Medical Conditions or Safety Concerns. Bed Mobility: 3 Transfers (B,C,W/C): 3 Gait: 3 Stairs: 9 Indoor Mobility (Ambulation): Needed Some Help Stairs: Not [place] Prior Devices Use: Walker PT Evaluation-Current Subjective Patient agrees to PT. Objective Patient Orientation: Person, Time, Situation Attachments: Oxygen, [place] Catheter ROM/Strength ROM Lower Extremities bilateral LE WFL ( noted leg length discrepancy) Strength Lower Extremities bilateral LE 3-/5 grossly Integumentary/Posture Bowel Incontinence: Yes Bladder Incontinence: [place]spinosa Cath Posture severely kyphotic Neuromuscular (Tone, Coordination, Reflexes) diminished coordination due to age and weakness Sensory Vision: Functional Hearing: Impaired Transfers Lying to Sitting/Side of Bed(Q: 2 Sit to Stand (QC): 2 Chair/Sow-yy-Bucqs Xfer(QC): 2 Gait Mode of Locomotion: Both Anticipated Mode of Locomotion: Both Walk 10 feet (QC): 2 Walk 50 ft with 2 Turns(QC): 88 Walk 150 ft (QC): 9 Distance: 15' Gait Assistive Device: FWW Comments/Gait Description extended UE's with FWW use/left LE lag with ambulation Balance Sitting Static: Fair Sitting Dynamic: Fair Standing Static: Poor Standing Dynamic: Poor Assessment/Needs Patient attempted to ambulate but fatigued very quickly. Noted left LE lag with ambulation. Limited mobility. Rehab Potential: Guarded PT [facility] Goals Terminal Operator Goals PT Terminal Operator Goals Time Frame: Oct 27, 2021 Roll Left & Right (QC): 3 Sit to Lying (QC): 3 Lying-Sitting on Side/Bed(QC): 3 Sit to Stand (QC): 3 Chair/Qyh-wo-Erjic Xfer(QC): 3 Toilet Transfer (QC): 3 Walk 10 feet (QC): 3 PT Plan Problem List Problem List: Activity Tolerance, Functional Strength, Safety, Balance, Gait, T ransfer, Bed Mobility Treatment/Plan Treatment Plan: Continue Plan of Care Treatment Plan: Bed Mobility, Education, Functional Activity Treva, Functional Strength, Gait, Safety, Therapeutic Exercise, Transfers Treatment Duration: Oct 27, 2021 Frequency: 6 times per week Estimated Hrs Per Day: .25 hour per day Patient and/or Family Agrees t: Yes Time/GCodes Time In: 1117 Time Out: 1132 Total Billed Treatment Time: 15 Total Billed Treatment 1 visit EVModC 15 min ASAD BOO PT Oct 12, 2021 11:45
[2021-10-12 12:08] VITALS: BP 109/56
--- NOTE | 2021-10-12 12:25 | Progress Note ---
OSCAR RM 10/12/21 1225: Subjective Date Seen by a Provider: Oct 12, 2021 Time Seen by a Provider: 09:40 Subjective/Events-last exam The patient was laying comfortably in bed. He was not in any distress. He denied any nausea, vomiting, shortness of breath and headaches. Review of Systems HEENT: No Head Aches Pulmonary: No Dyspnea Gastrointestinal: No: Nausea, Vomiting Objective Exam Last Set of Vital Signs Vital Signs Date Time Temp Pulse Resp B/P (MAP) Pulse Ox O2 Delivery O2 Flow Rate FiO2 10/12/21 12:08 36.4 59 16 109/56 (73) 93 Nasal Cannula 2.00 10/11/21 04:53 21 Capillary Refill : I&O Intake and Output 10/12/21 00:00 Intake Total 250 ml Output Total 3300 ml Balance -3050 ml Intake Oral 250 ml Output Urine Total 3300 ml Daily Weight Change No General: Alert, Cooperative, No Acute Distress HEENT: Atraumatic, PERRLA, EOMI, Mucous Memb Moist/[place] Neck: Supple, No JVD Heart: Regular Rate, No Murmurs, Other (distant heart sounds) Abdomen: Normal Bowel Sounds, Soft, No Tenderness, No Hepatosplenomegaly, No Masses Extremities: No Clubbing, No Cyanosis Skin: No Rashes, No Breakdown, No Significant Lesion Neuro: Normal Speech, Sensation Intact, Cranial Nerves 3-12 NL Results Lab Laboratory Tests 10/12/21 05:26: White Blood Count 12.1H, Red Blood Count 3.34L, Hemoglobin 9.1L, Hematocrit 29L, Mean Corpuscular Volume 86, Mean Corpuscular Hemoglobin 27, Mean Corpuscular Hemoglobin Concent 32, Red Cell Distribution Width 16.2H, Platelet Count 187, Mean Platelet Volume 12.6H, Immature Granulocyte % (Auto) 1, Neutrophils (%) (Auto) 75, Lymphocytes (%) (Auto) 12, Monocytes (%) (Auto) 11, Eosinophils (%) (Auto) 2, Basophils (%) (Auto) 0, Neutrophils # (Auto) 9.1H, Lymphocytes # (Auto) 1.4, Monocytes # (Auto) 1.3H, Eosinophils # (Auto) 0.2, Basophils # (Auto) 0.0, Immature Granulocyte # (Auto) 0.1, Prothrombin Time 18.2H, INR Comment 1.5H, Sodium Level 140, Potassium Level 3.6, Chloride Level 99, Carbon Dioxide Level 26, Anion Gap 15H, Blood Urea Nitrogen 20H, Creatinine 1.57H, Estimat Glomerular Filtration Rate 42, BUN/Creatinine Ratio 13, Glucose Level 137H, Calcium Level 9.2, Corrected Calcium 10.1, Total Bilirubin 0.6, Aspartate Amino Transf (AST/SGOT) 10, Alanine Aminotransferase (ALT/SGPT) 8, Alkaline Phosphatase 95, Total Protein 5.9L, Albumin 2.9L, Procalcitonin 0.09 Assessment/Plan Assessment/Plan Assess & Plan/Chief Complaint Assessment: Acute exacerbation of congestive heart failure both systolic and diastolic dysfunction Severe presbycusis Early dementia Advanced age Hypertension Chronic kidney disease Plan: Acute exacerbation of congestive heart failure both systolic and diastolic dysfunction Continue diuresis. PT will have his catheter removed today. He is off oxygen and is currently stable. He will start PT/OT. Social work will consult. Severe presbycusis Early dementia Advanced age Hypertension Chronic kidney disease No acute management currently needed. REBECCA BRADLEY DO 10/13/21 0544: Subjective Subjective/Events-last exam Patient doing a lot better Oxygen has been weaned Patient will go home at discharge with daughter Patient has significant cognitive deficit Very difficult to communicate due to speech pattern Review of Systems General: Fatigue, Malaise Objective Exam General: Alert, Cooperative, No Acute Distress Lungs: Clear to Auscultation Heart: Regular Rate Assessment/Plan Assessment/Plan Assess & Plan/Chief Complaint Discontinue catheter Home O2 evaluation Discharge plan for tomorrow Supervisory-Addendum Brief Verification & Attestation Participated in pt care: history, MDM, physical Personally performed: exam, history, MDM, supervision of care Care discussed with: Medical Student Procedures: n/a Results interpretation: Verified all documentation Verification and Attestation of Medical Student E/M Service A medical student performed and documented this service in my presence. I reviewed and verified all information documented by the medical student and made modifications to such information, when appropriate. I personally performed the physical exam and medical decision making. Rebecca Bradley Oct 13, 2021,05:43 OSCAR RM Oct 12, 2021 12:25 REBECCA BRADLEY DO Oct 13, 2021 05:44
--- NOTE | 2021-10-12 14:13 | Occupational Therapy Eval ---
OT Evaluation-General/PLF Medical Diagnosis Admission Date Oct 11, 2021 at 03:15 Medical Diagnosis: Chest Pain Onset Date: Oct 11, 2021 Therapy Diagnosis Therapy Diagnosis: Impaired adls, balance, strength, rom, cognition Precautions Precautions/Isolations: Fall Prevention, Standard Precautions Referral Physician: Anderson Referral Reason: Evaluation/Treatment Medical History Pertinent Medical History: Atrial Fib, CAD (pacemaker), CVA (x 4), DM, HTN, Hypothroidism, [place] (x 2) Current History Pt arrived to ER with Chest pain and SOA. Pt difficult to understand, unsure of accuracy of responses and no family present. Per patient, he lives in a single story home with his daughter and her roommate. He states he has been using a w/c for the past 3 years and needs assistance with transferring in/out of chair. Yet, then pt reports independence with all adls. He states daughter completes IADLs. Per chart, pt was recently in a assisted until 09/27/21. Social History Home: Single Level Current Living Status: Children ADL-Prior Level of Function SCALE: Activities may be completed with or without assistive devices. 3-Ojuxbxhuoz-vqtwjxf completes the activity by him/herself with no assistance from a helper. 5-Set-up or Clean-up Assistance-helper sets up or cleans up; patient completes activity. [place] assists only prior to or following the activity. 4-Supervision or Touching Assistance-helper provides verbal cues and/or touching/steadying and/or contact guard assistance as patient completes activity. Assistance may be provided throughout the activity or intermittently. 3-Partial/Moderate Assistance-helper does LESS THAN HALF the effort. [place] lifts, holds or supports trunk or limbs, but provides less than half the effort. 2-Substantial/Maximal Assistance-helper does MORE THAN HALF the effort. [place] lifts or holds trunk or limbs and provides more than half the effort. 8-Pjysnrbkx-noyske does ALL the effort. Patient does none of the effort to complete the activity. Or, the assistance of 2 or more helpers is required for the patient to complete the activity. If activity was not attempted, code reason: 7-Patient Refused. 9-Not Applicable-not attempted and the patient did not perform the activity before the current illness, exacerbation or injury. 10-Not Attempted due to Environmental Limitations-(lack of equipment, weather restraints, etc.). 88-Not Attempted due to Medical Conditions or Safety Concerns. Self Care: Unknown Functional Cognition: Needed Some Help DME/Equipment: Bath Chair, Shower Drive Self: No OT Current Status Subjective Pt denies pain, agreeable to eval. Appearance Pt left sitting in chair, all needs within reach at OT departure. Mental Status/Objective Attachments: IV, Oxygen, Telemetry Current Hand Dominance: Right Upper Extremity ROM Impaired bilaterally R shoulder: ~65 degrees AROM L shoulder: ~30 degrees AROM Impaired digit opposition, short digits Upper Extremity Strength Impaired, overall debilitated, 2/5 overall ADL-Treatment Lower Body Dressing (QC): 1 (per clinical judgment) On/Off Footwear (QC): 2 Toileting Hygiene (QC): 1 (per clinical judgment) Pt sleeping in recliner at OT arrival. Easy to waken. Difficult to understand secondary to tongue being constantly outside of his mouth and no dentition. Pt is also very [place]. Pt attempts to don/doff bilateral socks but needed max a after pt exhibits SOA and increased coughing spell after bending at waist. Cues for breathing techniques. Pt unable to perform cross over method. Pt declines standing. Per physical therapy note, pt was max a to stand with LE lag. Anticipate assist needed with all functional tasks in standing including clothing management. Education OT Patient Education: Correct positioning, Modified ADL techniques, Purpose of tx/functional activities, Safety issues, Transfer techniques Teaching Recipient: Patient Teaching Methods: Demonstration, Discussion Response to Teaching: Reinforcement Needed OT Psychometrician Goals Psychometrician Goals Time Frame: Nov 02, 2021 Eating (QC): 5 Oral Hygiene (QC): 4 Toileting Hygiene (QC): 3 Shower/Bathe Self (QC): 3 Upper Body Dressing (QC): 3 Lower Body Dressing (QC): 3 On/Off Footwear (QC): 3 1=Demonstrate adherence to instructed precautions during ADL tasks. 2=Patient will verbalize/demonstrate understanding of assistive devices/modifications for ADL. 3=Patient will improve strength/tolerance for activity to enable patient to perform ADL's. OT Education/Plan Problem List/Assessment Assessment: Decreased Activ Tolerance, Decreased Safety Aware, Decreased UE Strength, Dependent Transfers, Impaired Cognition, Impaired Coordination, Impaired Funct Balance, Impaired Self-Care Skills, Restricted Funct UE ROM Discharge Recommendations Plan/Recommendations: Continue POC Therapy Discharge Recommendati: Post Acute OT Treatment Plan/Plan of Care Treatment,Training & Education: Yes Patient would benefit from OT for education, treatment and training to promote independence in ADL's, mobility, safety and/or upper extremity function for ADL's. Plan of Care: ADL Retraining, Caregiver Training, Functional Mobility, Group Exercise/Act as Ind, UE Funct Exercise/Act Treatment Duration: Nov 02, 2021 Frequency: 3 times per week (3-5x/week) Estimated Hrs Per Day: .25 hour per day Rehab Potential: Guarded Time/GCodes Start Time: 13:54 Stop Time: 14:04 Total Time Billed (hr/min): 10 Billed Treatment Time 1 visit Kylah Tovar OT Oct 12, 2021 14:13
[2021-10-12 15:43] VITALS: BP 106/57
[2021-10-12 19:38] VITALS: BP 100/58
[2021-10-12] MEDS: warFARin 4 MG (COUMADIN) TAB PO SCH (21:16)
[2021-10-12 23:56] VITALS: BP 94/56
[2021-10-13] MEDS: RT-ALBUTEROL/IPRATROPIUM 3 ML (DUONEB) VIAL INH SCH ×2 (02:46→08:53)
[2021-10-13 04:00] VITALS: BP 105/65
[2021-10-13 05:48] LABS: BASOPHILS # (AUTO) 0.1 10^3/uL (0.0-0.1); BASOPHILS % (AUTO) 1 % (0-10); EOSINOPHILS # (AUTO) 0.3 10^3/uL (0.0-0.3); EOSINOPHILS % (AUTO) 3 % (0-10); HEMATOCRIT 28 % (40-54); HEMOGLOBIN 8.7 g/dL (13.3-17.7); LYMPHOCYTES # (AUTO) 1.7 10^3/uL (1.0-4.0); LYMPHOCYTES % (AUTO) 19 % (12-44); MEAN CORPUSCULAR HEMOGLOBIN 28 pg (25-34); MEAN CORPUSCULAR HGB CONC 32 g/dL (32-36); MEAN CORPUSCULAR VOLUME 88 fL (80-99); MONOCYTES # (AUTO) 1.2 10^3/uL (0.0-1.0); MONOCYTES % (AUTO) 13 % (0-12); NEUTROPHILS # (AUTO) 5.7 10^3/uL (1.8-7.8); NEUTROPHILS % (AUTO) 63 % (42-75); PLATELET COUNT 170 10^3/uL (130-400)
[2021-10-13 05:55] LABS: ALBUMIN 2.9 GM/DL (3.2-4.5); POTASSIUM 3.9 MMOL/L (3.6-5.0)
[2021-10-13 05:56] LABS: CALCIUM 8.8 MG/DL (8.5-10.1)
[2021-10-13 05:57] LABS: TOTAL PROTEIN 5.8 GM/DL (6.4-8.2)
[2021-10-13 05:59] LABS: BILIRUBIN,TOTAL 0.5 MG/DL (0.1-1.0)
[2021-10-13 06:00] LABS: INR 1.5 (0.8-1.4); PROTHROMBIN TIME PATIENT 18.9 SEC (12.2-14.7)
[2021-10-13 06:01] LABS: CREATININE SERUM 2.07 MG/DL (0.60-1.30)
[2021-10-13] MEDS ORDERED: NS (IVPB) 250 ML IV ONE (06:45)
[2021-10-13] MEDS: CATHETER FLUSH 10 ML SYR IVP SCH ×2 (06:51→14:09)
[2021-10-13] MEDS: PANTOPRAZOLE 20 MG TABLET (PROTONIX) PO SCH (06:51)
[2021-10-13] MEDS: LEVOTHYROXINE 50 MCG (LEVOTHROID) TAB PO SCH (06:51)
[2021-10-13 08:00] VITALS: BP 143/79
[2021-10-13] MEDS: ASPIRIN E.C. 81 MG (ECOTRIN) TAB PO SCH (09:11)
[2021-10-13] MEDS: ALLOPURINOL 100 MG (ZYLOPRIM) TAB PO SCH (09:11)
[2021-10-13] MEDS: SENNA W/DOCUSATE (SENOKOT S) TABLET PO SCH (09:11)
[2021-10-13] MEDS: MAGNESIUM OXIDE (MAG-OX)400 MG TAB PO SCH (09:11)
[2021-10-13] MEDS: ISOSORBIDE MONONITRATE 60 MG (IMDUR) TAB PO SCH (09:11)
[2021-10-13] MEDS: LORATADINE (CLARITIN) 10 MG TAB PO SCH (09:11)
[2021-10-13] MEDS: polyethylene glycoL POWDER 17 GM (MIRALAX) PACK PO SCH (09:11)
--- NOTE | 2021-10-13 12:01 | Cardiology Progress Note ---
Progress Note-Cardiology Events since last exam Date Seen by Provider: Oct 13, 2021 Time Seen by Provider: 11:55 Events since last exam I am following him due to heart failure. As before, he is somewhat difficult to understand. He does seem a little more confused today. He states that his breathing has improved but does report chronic dyspnea at home. He denies chest discomfort, palpitations, syncope, or ankle edema. Certain portions of this document may have been dictated utilizing voice recognition technology. Inherent to this technology, typographical and grammatical errors may exist. As much as I am diligent to identify and correct these mistakes, some errors may remain in the document. Vitals Last set of Vitals Signs Vital Signs 10/11/21 10/12/21 10/13/21 10/13/21 10/13/21 04:53 12:08 08:00 08:57 09:00 Temp 36.2 Pulse 56 Resp 18 B/P (MAP) 143/79 (100) Pulse Ox 91 O2 Delivery Room Air O2 Flow Rate 2.00 FiO2 21 Labs Labs Laboratory Tests 10/13/21 05:30 Exam Vital Signs Vital Signs Date Time Temp Pulse Resp B/P (MAP) Pulse Ox O2 Delivery O2 Flow Rate FiO2 10/13/21 09:00 Room Air 10/13/21 08:57 91 10/13/21 08:00 36.2 56 18 143/79 (100) 10/12/21 12:08 2.00 10/11/21 04:53 21 Physical Exam General: Alert. No acute distress. He is edentulous. He is difficult to understand. Eye: No xanthelasma. HENT: Normocephalic. Neck: Jugular venous pressure does not appear elevated. Respiratory: Lungs are clear to auscultation. Respirations are non-labored. Breath sounds are equal. Symmetrical chest wall expansion. Cardiovascular: Normal rate. Irregular rhythm. No murmur. No gallop. Trace bilateral pretibial edema. Gastrointestinal: Soft. Normal bowel sounds. Skin: Warm. Dry. Neurologic: Alert but oriented to person only. He knows he is in a hospital but he does not know where. Cranial nerves 3-11 grossly intact. Psychiatric: Cooperative but seems confused. Labs Laboratory Tests Test 10/13/21 05:30 Range/Units White Blood Count 9.0 4.3-11.0 10^3/uL Red Blood Count 3.14 L 4.30-5.52 10^6/uL Hemoglobin 8.7 L 13.3-17.7 g/dL Hematocrit 28 L 40-54 % Mean Corpuscular Volume 88 80-99 fL Mean Corpuscular Hemoglobin 28 25-34 pg Mean Corpuscular Hemoglobin Concent 32 32-36 g/dL Red Cell Distribution Width 16.4 H 10.0-14.5 % Platelet Count 170 130-400 10^3/uL Mean Platelet Volume 13.0 H 9.0-12.2 fL Immature Granulocyte % (Auto) 1 % Neutrophils (%) (Auto) 63 42-75 % Lymphocytes (%) (Auto) 19 12-44 % Monocytes (%) (Auto) 13 H 0-12 % Eosinophils (%) (Auto) 3 0-10 % Basophils (%) (Auto) 1 0-10 % Neutrophils # (Auto) 5.7 1.8-7.8 10^3/uL Lymphocytes # (Auto) 1.7 1.0-4.0 10^3/uL Monocytes # (Auto) 1.2 H 0.0-1.0 10^3/uL Eosinophils # (Auto) 0.3 0.0-0.3 10^3/uL Basophils # (Auto) 0.1 0.0-0.1 10^3/uL Immature Granulocyte # (Auto) 0.1 0.0-0.1 10^3/uL Prothrombin Time 18.9 H 12.2-14.7 SEC INR Comment 1.5 H 0.8-1.4 Sodium Level 139 135-145 MMOL/L Potassium Level 3.9 3.6-5.0 MMOL/L Chloride Level 98 98-107 MMOL/L Carbon Dioxide Level 26 21-32 MMOL/L Anion Gap 15 H 5-14 MMOL/L Blood Urea Nitrogen 28 H 7-18 MG/DL Creatinine 2.07 H 0.60-1.30 MG/DL Estimat Glomerular Filtration Rate 30 BUN/Creatinine Ratio 14 Glucose Level 151 H 70-105 MG/DL Calcium Level 8.8 8.5-10.1 MG/DL Corrected Calcium 9.7 8.5-10.1 MG/DL Total Bilirubin 0.5 0.1-1.0 MG/DL Aspartate Amino Transf (AST/SGOT) 10 5-34 U/L Alanine Aminotransferase (ALT/SGPT) 8 0-55 U/L Alkaline Phosphatase 87 40-136 U/L Total Protein 5.8 L 6.4-8.2 GM/DL Albumin 2.9 L 3.2-4.5 GM/DL Diagnosis/Problems Diagnosis/Problems (1) Acute on chronic combined systolic and diastolic congestive heart failure Assessment & Plan: He has moderate left ventricular systolic dysfunction noted on his echocardiogram from this admission. Unknown whether or not this is new or a chronic finding. However, he does have a dual-chamber defibrillator with would suggest that he may have pre-existing cardiomyopathy. His creatinine took a slight jump today and the hospitalist has stopped the intravenous furosemide and ordered a 250 mL bolus of normal saline. This is not unreasonable. If his creatinine is improved tomorrow, we could consider restarting his home dose of furosemide. He is on carvedilol. His outpatient losartan is on hold due to low blood pressures. His chest x-ray from 10/12 showed persistent pulmonary edema. I have ordered a follow-up chest x-ray for tomorrow. (2) Cardiomyopathy Assessment & Plan: As above, unclear whether or not this is a new or chronic finding in this patient but based upon the fact that he has a defibrillator, this is probably a chronic issue. He was also taking carvedilol and losartan at home which are common medications for cardiomyopathy. His carvedilol has been reordered but due to low blood pressures, losartan has still not been reordered. (3) Coronary artery disease with unstable angina pectoris Assessment & Plan: He apparently reported chest pain at our outside emergency room but had an undetectable troponin level. He does not have any obvious ischemic changes on his electrocardiogram. It appears as though he was on aspirin at home but also warfarin presumably for atrial fibrillation. He is back on carvedilol and isosorbide mononitrate which he was taking at home. His cholesterol level is actually quite low on no statin medication. I have ordered records from his outside junior project manager as noted above. I do not think he would be a good candidate for an invasive cardiac evaluation. I recommend we continue conservative medical therapy. (4) Persistent atrial fibrillation Assessment & Plan: He was on warfarin at home and his electrocardiograms from our facility appeared to be consistent with atrial fibrillation but there is a significant amount of artifact on the tracings. His INR level have been variable here in the hospital.. His warfarin has been reordered by the hospital provider. He may be a good candidate to change warfarin over to a DOAC. However, I would like to know his history before making this change. (5) Primary hypertension Assessment & Plan: He is presently back on carvedilol. We will resume losartan when able. (6) Acute kidney injury superimposed on chronic kidney disease Assessment & Plan: As above, his creatinine level has risen. The intravenous furosemide has been discontinued. (7) Cardiac defibrillator in situ Assessment & Plan: The device appears to be functioning normally on the electrocardiograms which have shown intermittent ventricular pacing. CESAR RAMIREZ JR, MD Oct 13, 2021 12:01
--- NOTE | 2021-10-13 12:05 | Physical Therapy Daily Note ---
PT Daily Note-Current Subjective Pt agreeable to treatment. Transfers SCALE: Activities may be completed with or without assistive devices. 9-Hsznrjgzck-lmyhaza completes the activity by him/herself with no assistance from a helper. 5-Set-up or Clean-up Assistance-helper sets up or cleans up; patient completes activity. [place] assists only prior to or following the activity. 4-Supervision or Touching Assistance-helper provides verbal cues and/or touching/steadying and/or contact guard assistance as patient completes activity. Assistance may be provided throughout the activity or intermittently. 3-Partial/Moderate Assistance-helper does LESS THAN HALF the effort. [place] lifts, holds or supports trunk or limbs, but provides less than half the effort. 2-Substantial/Maximal Assistance-helper does MORE THAN HALF the effort. [place] lifts or holds trunk or limbs and provides more than half the effort. 0-Fzjgbruny-dxvyek does ALL the effort. Patient does none of the effort to complete the activity. Or, the assistance of 2 or more helpers is required for the patient to complete the activity. If activity was not attempted, code reason: 7-Patient Refused. 9-Not Applicable-not attempted and the patient did not perform the activity before the current illness, exacerbation or injury. 10-Not Attempted due to Environmental Limitations-(lack of equipment, weather restraints, etc.). 88-Not Attempted due to Medical Conditions or Safety Concerns. Sit to Lying (QC): 4 Lying to Sitting/Side of Bed(Q: 4 Exercises Supine Ex: Ankle pumps, Quad Set, Lower trunk rotation, Heel Slides, Knee to chest, Straight leg raise, Hip abd/add Supine Reps: 10 Standing: Heel/toe raises, Marching, Side steps Standing Reps: 10 Assessment Current Status: Good Progress Came to sitting with Min assist and performed standing exercises including side stepping, marching, and calf raises. He transitioned back to bed with Min A for LEs. PT [employer] Goals Care Home Goals PT Care Home Goals Time Frame: Oct 27, 2021 Roll Left & Right (QC): 3 Sit to Lying (QC): 3 Lying-Sitting on Side/Bed(QC): 3 Sit to Stand (QC): 3 Chair/Rov-of-Icvbd Xfer(QC): 3 Toilet Transfer (QC): 3 Walk 10 feet (QC): 3 PT Plan Treatment/Plan Treatment Plan: Continue Plan of Care Treatment Plan: Bed Mobility, Education, Functional Activity Treva, Functional Strength, Gait, Safety, Therapeutic Exercise, Transfers Treatment Duration: Oct 27, 2021 Frequency: 6 times per week Estimated Hrs Per Day: .25 hour per day Patient and/or Family Agrees t: Yes Time/GCodes Time In: 1030 Time Out: 1045 Total Billed Treatment Time: 15 Total Billed Treatment visit, exercise 15min LEXY PAYNE PT Oct 13, 2021 12:05
[2021-10-13] MEDS ORDERED: WARF4TAB3 PO (12:11)
[2021-10-13] MEDS ORDERED: FURO-125 PO (12:11)
--- NOTE | 2021-10-13 12:12 | Discharge Summary ---
Discharge Summary Hospital Course Was the Problem List Reviewed?: Yes Problems/Dx: (1) Acute on chronic combined systolic and diastolic congestive heart failure (2) Cardiomyopathy (3) Coronary artery disease with unstable angina pectoris (4) Persistent atrial fibrillation (5) Primary hypertension (6) Acute kidney injury superimposed on chronic kidney disease (7) Cardiac defibrillator in situ Hospital Course Date of Admission: Oct 11, 2021 at 03:15 Admission Diagnosis : Family Physician/Provider: Juan Manuel Rocha DO Date of Discharge: 10/13/21 Discharge Diagnosis: Hypoxia, exacerbation of congestive heart failure, advanced age, cognitive deficit Hospital Course: Patient had an uneventful hospital course. Cardiology was consulted and initiated aggressive diuresis regimen. Oxygen was weaned. Overall patient appeared to have a very poor long-term prognosis. He remained a full code at his choice but in my opinion he does not have the mental capacity to make sound decisions and at 89 years old and very end-stage severe poor recall he would not be able to understand the details of resuscitation and ventilator management. The daughter whom he lives with is his DPOA. I would recommend hospice and if he is readmitted will obtain a formal slums score to confirm my suspicion that he does not have the capacity to make decisions and will have the DNR discussion with the daughter. Labs and Pending Lab Test: Laboratory Tests 10/13/21 05:30: White Blood Count 9.0, Red Blood Count 3.14L, Hemoglobin 8.7L, Hematocrit 28L, Mean Corpuscular Volume 88, Mean Corpuscular Hemoglobin 28, Mean Corpuscular Hemoglobin Concent 32, Red Cell Distribution Width 16.4H, Platelet Count 170, Mean Platelet Volume 13.0H, Immature Granulocyte % (Auto) 1, Neutrophils (%) (Auto) 63, Lymphocytes (%) (Auto) 19, Monocytes (%) (Auto) 13H, Eosinophils (%) (Auto) 3, Basophils (%) (Auto) 1, Neutrophils # (Auto) 5.7, Lymphocytes # (Auto) 1.7, Monocytes # (Auto) 1.2H, Eosinophils # (Auto) 0.3, Basophils # (Auto) 0.1, Immature Granulocyte # (Auto) 0.1, Prothrombin Time 18.9H, INR Comment 1.5H, Sodium Level 139, Potassium Level 3.9, Chloride Level 98, Carbon Dioxide Level 26, Anion Gap 15H, Blood Urea Nitrogen 28H, Creatinine 2.07H, Estimat Glomerular Filtration Rate 30, BUN/Creatinine Ratio 14, Glucose Level 151H, Calcium Level 8.8, Corrected Calcium 9.7, Total Bilirubin 0.5, Aspartate Amino Transf (AST/SGOT) 10, Alanine Aminotransferase (ALT/SGPT) 8, Alkaline Phosphatase 87, Total Protein 5.8L, Albumin 2.9L Home Meds Active Warfarin Sodium 4 Mg Tablet 4 Mg PO DAILY Lasix (Furosemide) 20 Mg Tablet 20 Mg PO DAILY Reported Nitroglycerin 0.4 Mg Tab.subl 0.4 Mg SL UD PRN Fluticasone-Salmeterol 113-14 (Fluticasone/Salmeterol) 1 Each Aer.pow.ba 1 Puff INH BID PRN Doxycycline Hyclate 100 Mg Tablet 100 Mg PO BID FILLED 09-30-2021 #20/10 DAY SUPPLY Levothyroxine Sodium 50 Mcg Tablet 50 Mcg PO DAILY Warfarin Sodium 3 Mg Tablet 3 Mg PO SUN,SAT @HS Omeprazole 20 Mg Capsule.dr 20 Mg PO DAILY Magnesium (Magnesium Oxide) 400 Mg Tablet 400 Mg PO BID Warfarin Sodium 4 Mg Tablet 4 Mg PO MO,,,TH,FR @HS Allopurinol 100 Mg Tablet 100 Mg PO DAILY Losartan Potassium 25 Mg Tablet 25 Mg PO DAILY Loratadine 10 Mg Tablet 10 Mg PO DAILY Isosorbide Mononitrate ER (Isosorbide Mononitrate) 120 Mg Tab.er.24h 60 Mg PO DAILY TAKES OF A 120MG TAB Carvedilol 3.125 Mg Tablet 3.125 Mg PO BID Aspirin EC (Aspirin) 81 Mg Tablet.dr 81 Mg PO DAILY Assessment/Pt Instructions PCP in 1 week Discharge Planning: <30 minutes discharge planning Discharge Instructions Discharge Diet: No Restrictions Discharge Physical Examination Vital Signs Vital Signs Date Time Temp Pulse Resp B/P (MAP) Pulse Ox O2 Delivery O2 Flow Rate FiO2 10/13/21 09:00 Room Air 10/13/21 08:57 91 10/13/21 08:00 36.2 56 18 143/79 (100) 10/12/21 12:08 2.00 10/11/21 04:53 21 General Appearance: No Apparent Distress, WD/WN, Chronically ill, Thin Allergies: Coded Allergies: No Known Drug Allergies (Unverified , 01/28/20) Discharge Summary Date of Admission Oct 11, 2021 at 03:15 Date of Discharge Discharge Date: Oct 13, 2021 Admission Diagnosis Assessment: Acute exacerbation of congestive heart failure both systolic and diastolic dysfunction Severe presbycusis Early dementia Advanced age Hypertension Chronic kidney disease Plan: Diuresis Oxygen Moved to fourth floor Appreciate cardiology Discharge Diagnosis (1) Acute on chronic combined systolic and diastolic congestive heart failure Assessment & Plan: He has moderate left ventricular systolic dysfunction noted on his echocardiogram from this admission. Unknown whether or not this is new or a chronic finding. However, he does have a dual-chamber defibrillator with would suggest that he may have pre-existing cardiomyopathy. His creatinine took a slight jump today and the hospitalist has stopped the intravenous furosemide and ordered a 250 mL bolus of normal saline. This is not unreasonable. If his creatinine is improved tomorrow, we could consider restarting his home dose of furosemide. He is on carvedilol. His outpatient losartan is on hold due to low blood pressures. His chest x-ray from 10/12 showed persistent pulmonary edema. I have ordered a follow-up chest x-ray for tomorrow. (2) Cardiomyopathy Assessment & Plan: As above, unclear whether or not this is a new or chronic finding in this patient but based upon the fact that he has a defibrillator, this is probably a chronic issue. He was also taking carvedilol and losartan at home which are common medications for cardiomyopathy. His carvedilol has been reordered but due to low blood pressures, losartan has still not been reordered. (3) Coronary artery disease with unstable angina pectoris Assessment & Plan: He apparently reported chest pain at our outside emergency room but had an undetectable troponin level. He does not have any obvious ischemic changes on his electrocardiogram. It appears as though he was on aspirin at home but also warfarin presumably for atrial fibrillation. He is back on carvedilol and isosorbide mononitrate which he was taking at home. His cholesterol level is actually quite low on no statin medication. I have ordered records from his outside parts washer as noted above. I do not think he would be a good candidate for an invasive cardiac evaluation. I recommend we continue conservative medical therapy. (4) Persistent atrial fibrillation Assessment & Plan: He was on warfarin at home and his electrocardiograms from our facility appeared to be consistent with atrial fibrillation but there is a significant amount of artifact on the tracings. His INR level have been variable here in the hospital.. His warfarin has been reordered by the hospital provider. He may be a good candidate to change warfarin over to a DOAC. However, I would like to know his history before making this change. (5) Primary hypertension Assessment & Plan: He is presently back on carvedilol. We will resume losartan when able. (6) Acute kidney injury superimposed on chronic kidney disease Assessment & Plan: As above, his creatinine level has risen. The intravenous furosemide has been discontinued. (7) Cardiac defibrillator in situ Assessment & Plan: The device appears to be functioning normally on the electrocardiograms which have shown intermittent ventricular pacing. CB BRADLEY DO Oct 13, 2021 12:12
[2021-10-13 12:24] VITALS: BP 138/65
--- NOTE | 2021-10-13 12:32 | D/C HH Face to Face Order ---
D/C Face to Face Orders Reconcile Patient Problems Problems Reviewed?: Yes Instructions for Patient Integrity Patient Instructions/FollowUp: PCP 1 week Physician to follow Patient: PCP Discharge Diet for Home: No Restrictions Patient Problems: CHF Hypoxia Patient Data-Allergies,Ht & Wt Patient Allergies: Coded Allergies: No Known Drug Allergies (Unverified , 01/28/20) Home Health Need/Face to Face Date of Face to Face: Oct 13, 2021 Clinical Findings: Generalized weakness and fatigue, Instability, Muscle weakness, Shortness of breath, Unsteady gait I have seen Pt [id number]: Yes Discharged To: Home Diagnosis/Conditions: CHF Patient is Homebound due to: CognItive deficits, Smita fall risk due to instabilty, Muscle weakness, Shortness of breath/distress Homebound Status Due to the above stated illness, injury or surgical procedure (medical condition or diagnosis) and associated clinical findings, the patient is homebound because of his/her inability to leave home except with aid of a supportive device and/or person AND leaving the home requires a considerable and taxing effort or is medically contraindicated. Pt req the following assistanc: [facility] Nursing Orders Home Health Services Order: Nursing Services, Retail Training Manager-Evaluate & Treat, Physical Therapy-Evaluate & Treat Home Health Infusion Therapy Line Start Date: Oct 11, 2021 Certify Stmt I certify that this patient is under my care and that I, a nurse practitioner or a physician; a promotional advertising assistant working with me, had a face to face encounter that - meets the physician face to face encounter requirements with this patient as dated. CB BRADLEY DO Oct 13, 2021 12:32
[2021-10-13 15:06] VITALS: BP 138/65
[2021-10-13] MEDS ORDERED: warFARin 3 MG (COUMADIN) TAB PO SCH (21:00)
== END 2021-10-13 15:00 | disposition home health service (06) | DRG 291 ==
LOC: EDUNIT# 23:44 → ER FS 23:46 → CSD 10-11 03:15 → 4TH 10-11 15:40
PROVIDERS: ADMIT Internal Medicine; ATTEND Internal Medicine
PROC: 8E0ZXY6 Isolation (ICD-10-PCS; principal; 2021-10-11)
DX: I13.0 Hypertensive heart and chronic kidney disease with heart failure and stage 1 through stage 4 chronic kidney disease, or unspecified chronic kidney disease (principal); I50.43 Acute on chronic combined systolic (congestive) and diastolic (congestive) heart failure; N17.9 Acute kidney failure, unspecified; L97.919 Non-pressure chronic ulcer of unspecified part of right lower leg with unspecified severity; I48.19 Other persistent atrial fibrillation; E11.22 Type 2 diabetes mellitus with diabetic chronic kidney disease; N18.9 Chronic kidney disease, unspecified; J44.9 Chronic obstructive pulmonary disease, unspecified; F03.90 Unspecified dementia, unspecified severity, without behavioral disturbance, psychotic disturbance, mood disturbance, and anxiety; I42.9 Cardiomyopathy, unspecified; I08.0 Rheumatic disorders of both mitral and aortic valves; E03.9 Hypothyroidism, unspecified; I25.110 Atherosclerotic heart disease of native coronary artery with unstable angina pectoris; E78.00 Pure hypercholesterolemia, unspecified; H91.10 Presbycusis, unspecified ear; Z79.01 Long term (current) use of anticoagulants; Z95.0 Presence of cardiac pacemaker; I25.2 Old myocardial infarction; Z79.82 Long term (current) use of aspirin
CPT/HCPCS: 36415; 51702; 71045; 71275; 80048; 80053; 80061; 81000; 83735; 83880; 84145; 84484; 85025; 85379; 85610; 85730; 93005; 93041; 93306; 93925; 94640; 94760; 94761; Q9967

== ENCOUNTER → 2021-10-19 | Outpatient (CLI) | payer MEDICARE ==
[~2021-10-19] MED LIST changes: +ALLO100T PO; +ASPI-1238 PO; +CARV3.122 PO; +FLUT1AER4 INH; +FURO-125 PO; +ISOS120T9 PO; +LEVO50TA6 PO; +LORA10TA7 PO; +LOSA25TA41 PO; +MAGN400T39 PO; +NITR0.4T39 SL; +OMEP20CA18 PO; +WARF3TAB56 PO; +WARF4TAB3 PO
[2021-10-19 12:10] LABS: CALCIUM 9.3 MG/DL (8.5-10.1); CREATININE SERUM 1.95 MG/DL (0.60-1.30); POTASSIUM 4.2 MMOL/L (3.6-5.0)
== END ==
LOC: IHC 10:26
PROVIDERS: ATTEND Pediatrics
DX: I50.43 Acute on chronic combined systolic (congestive) and diastolic (congestive) heart failure (principal)
CPT/HCPCS: 80048